=== PATIENT | male | born 1955 | race African-American/Black ===

== ENCOUNTER 2017-01-17 17:46 | Emergency (ER) | payer MEDICARE, OTHER ==
[~2017-01-17 17:46] MED LIST: Sodium Chloride 0.9% 1,000 ML BAG ONE
[2017-01-17 18:31] LABS: #Basophils 0.1 thou/uL (0.0-0.2); #Eosinphils 0.2 thou/uL (0.0-0.7); #Monocytes 0.9 thou/uL (0.11-0.59); #Neutrophils 5.9 thou/uL (1.40-6.50); %Basophils 1.2 % (0.0-1.0); %Eosinophils 1.5 % (0.0-10.0); %Lymphocytes 29.7 % (21.0-51.0); %Monocytes 8.5 % (0.0-10.0); %Neutrophils 59.1 % (42.0-75.0); Mean Corpuscular HGB CONC 34.1 g/dL (32.0-36.0); Mean Corpuscular Volume 87.9 fl (80.0-94.0); Platelet Count 349 thou/uL (130-400); RBC Distribution Width 12.3 % (11.5-14.5); Red Blood Cell (RBC) Count 5.33 mill/uL (4.70-6.10); White Blood Cell (WBC) Count 10.1 thou/uL (4.8-10.8)
[2017-01-17 18:34] LABS: Prothrombin Time 13.9 SEC (12.0-14.7)
[2017-01-17 18:35] LABS: PTT 27.2 SEC (22.9-36.1)
[2017-01-17 18:42] LABS: Acetaminophen Less than 3.0 mcg/mL (10.0-30.0); Alcohol Less than 10 mg/dL (Less than 10); Salicylate Less than 5.0 mg/dL (15.0-30.0)
[2017-01-17 18:45] LABS: CKMB 5.4 ng/mL (0-6.6); Troponin I 0.044 ng/mL (< 0.028)
[2017-01-17 19:02] LABS: Anion Gap 20 mmol/L (10-20); BUN (Urea Nitrogen) 77 mg/dL (8.4-25.7); Calc. Creatinine Clearance 0 mL/min (70-130); Calcium 9.5 mg/dL (7.8-10.44); Carbon Dioxide 21 mmol/L (23-31); Chloride 99 mmol/L (98-107); Estimated GFR-MDRD 25; Glucose 144 mg/dL (80-115); Potassium 3.6 mmol/L (3.5-5.1); Sodium 136 mmol/L (136-145)
[2017-01-17 19:22] LABS: Amphetamine Not Detected (NotDetected); Barbiturates Screen Not Detected (NotDetected); Benzodiazepine Screen Not Detected (NotDetected); Cocaine Metabolite Screen Not Detected (NotDetected); Medtox Control Line Valid? VALID (VALID); Methadone Not Detected (NotDetected); Methamphetamine Not Detected (NotDetected); Opiate Screen Not Detected (NotDetected); Oxycodone Screen Not Detected (NotDetected); Phencyclidine (PCP) Not Detected (NotDetected); THC/Cannabinoid Screen Not Detected (NotDetected); Tricyclic Screen Not Detected (NotDetected)
--- NOTE | 2017-01-17 21:05 | RAD ---
PORTABLE AP CHEST X-RAY 01/17/17 HISTORY: Dyspnea. COMPARISON: 08/17/16 FINDINGS: A single lead left subclavian AICD device remains in place. The cardiac silhouette remains markedly enlarged but stable in size. Pulmonary vasculature is within normal limits. The lungs are clear. The re has been no interval change when compared to the prior exam. IMPRESSION: 1. No acute cardiopulmonary process. 2. Stable cardiomegaly. POS: [facility]
== END 2017-01-17 20:07 | disposition home or self-care (01) ==
LOC: MADERS 17:46
DX: E86.0 Dehydration (principal); I48.91 Unspecified atrial fibrillation; I25.10 Atherosclerotic heart disease of native coronary artery without angina pectoris; I25.2 Old myocardial infarction; E78.5 Hyperlipidemia, unspecified; E78.00 Pure hypercholesterolemia, unspecified; I11.0 Hypertensive heart disease with heart failure; I50.9 Heart failure, unspecified; Z87.891 Personal history of nicotine dependence; Z79.84 Long term (current) use of oral hypoglycemic drugs; Z79.899 Other long term (current) drug therapy
CPT/HCPCS: 71010; 80048; 80306; 80307; 82553; 83880; 84484; 85025; 85610; 85730; 93005; 96360; 96361; J7050

== ENCOUNTER 2017-04-16 01:50 | Emergency (ER) | payer MEDICARE ==
[2017-04-16 02:24] LABS: #Basophils 0.1 thou/uL (0.0-0.2); #Eosinphils 0.2 thou/uL (0.0-0.7); #Lymphocytes 3.2 thou/uL (1.20-3.40); #Monocytes 0.9 thou/uL (0.11-0.59); #Neutrophils 5.3 thou/uL (1.40-6.50); %Basophils 1.3 % (0.0-1.0); %Eosinophils 1.8 % (0.0-10.0); %Lymphocytes 33.2 % (21.0-51.0); %Monocytes 9.2 % (0.0-10.0); %Neutrophils 54.5 % (42.0-75.0); Hemoglobin 12.5 g/dL (14.0-18.0); Mean Corpuscular HGB CONC 33.1 g/dL (32.0-36.0); Mean Corpuscular Hemoglobin 30.6 pg (27.0-31.0); Mean Corpuscular Volume 92.6 fl (80.0-94.0); Mean Platelet Volume 8.6 fL (7.4-10.4); Platelet Count 258 thou/uL (130-400); White Blood Cell (WBC) Count 9.7 thou/uL (4.8-10.8)
[2017-04-16] MEDS ORDERED: Furosemide 40 MG/4 ML VIAL ONE (02:24)
[2017-04-16] MEDS ORDERED: Furosemide 20 MG/2 ML VIAL ONE (02:24)
[2017-04-16 02:42] LABS: ALT (SGPT) 11 U/L (8-55); AST (SGOT) 18 U/L (5-34); Albumin 3.5 g/dL (3.4-4.8); Alkaline Phosphatase 91 U/L (40-150); Anion Gap 18 mmol/L (10-20); BUN (Urea Nitrogen) 22 mg/dL (8.4-25.7); Bilirubin, Total 0.5 mg/dL (0.2-1.2); Calc. Creatinine Clearance 0 mL/min (70-130); Calcium 8.6 mg/dL (7.8-10.44); Carbon Dioxide 18 mmol/L (23-31); Chloride 109 mmol/L (98-107); Estimated GFR-MDRD 65; Globulin 3.5 g/dL (2.4-3.5); Glucose 111 mg/dL (80-115); Magnesium 2.1 mg/dL (1.6-2.6); Potassium 3.6 mmol/L (3.5-5.1); Sodium 141 mmol/L (136-145)
[2017-04-16 02:45] LABS: CKMB 2.8 ng/mL (0-6.6); Troponin I 0.028 ng/mL (< 0.028)
--- NOTE | 2017-04-16 08:42 | RAD ---
RADIOGRAPH CHEST 1 VIEW: HISTORY: 61-year-old male with dyspnea. FINDINGS: There is cardiomegaly. There is no evidence of air space density, pulmonary edema, or pneumothorax. The lateral costophrenic angles are sharp. There is a single lead left subclavian AICD. IMPRESSION: 1) No acute pulmonary findings. 2) Cardiomegaly without congestive heart failure. 3) Automatic implantable cardioverter-defibrillator. ann POS: [facility]
== END 2017-04-16 03:14 | disposition short-term general hospital (02) ==
LOC: MADERS 01:50
DX: I11.0 Hypertensive heart disease with heart failure (principal); I50.9 Heart failure, unspecified; E87.70 Fluid overload, unspecified; I48.91 Unspecified atrial fibrillation; I25.10 Atherosclerotic heart disease of native coronary artery without angina pectoris; I25.2 Old myocardial infarction; E78.00 Pure hypercholesterolemia, unspecified; E78.5 Hyperlipidemia, unspecified; M06.9 Rheumatoid arthritis, unspecified; Z87.891 Personal history of nicotine dependence; Z79.899 Other long term (current) drug therapy; Z79.82 Long term (current) use of aspirin
CPT/HCPCS: 71010; 80053; 82553; 83735; 83880; 84443; 84484; 85025; 93005; 96374; J1940

== ENCOUNTER 2017-04-24 10:22 | Outpatient (CLI) | payer MEDICARE ==
[2017-04-24 11:06] LABS: Hemoglobin A1c 6.3 % (4.0-6.0)
[2017-04-24 11:39] LABS: ALT (SGPT) 11 U/L (8-55); AST (SGOT) 15 U/L (5-34); Albumin 3.4 g/dL (3.4-4.8); Alkaline Phosphatase 91 U/L (40-150); Anion Gap 17 mmol/L (10-20); BUN (Urea Nitrogen) 17 mg/dL (8.4-25.7); Bilirubin, Total 1.1 mg/dL (0.2-1.2); Calc. Creatinine Clearance 0 mL/min (70-130); Calcium 8.8 mg/dL (7.8-10.44); Carbon Dioxide 22 mmol/L (23-31); Chloride 102 mmol/L (98-107); Estimated GFR-MDRD 57; Globulin 3.7 g/dL (2.4-3.5); Glucose 111 mg/dL (80-115); Potassium 3.1 mmol/L (3.5-5.1); Protein, Total 7.1 g/dL (5.8-8.1); Sodium 138 mmol/L (136-145); Uric Acid 9.3 mg/dL (3.5-7.2)
[2017-04-24 17:42] LABS: Creatinine, Urine 184.7 mg/dL (63-166); Microalbumin Urine 14.3 mg/dL (0.5-50.0); Microalbumin/Creat Ratio 77.4 mg/g (Less than 30)
== END 2017-04-24 10:23 | disposition home or self-care (01) ==
LOC: MADLAB 10:22
PROVIDERS: ATTEND Family Medicine
DX: E11.65 Type 2 diabetes mellitus with hyperglycemia (principal); E11.22 Type 2 diabetes mellitus with diabetic chronic kidney disease; N18.9 Chronic kidney disease, unspecified; I50.9 Heart failure, unspecified; M10.9 Gout, unspecified
CPT/HCPCS: 36415; 80053; 82043; 83036; 83880; 84550

== ENCOUNTER 2017-05-17 20:35 | Emergency (ER) | payer MEDICARE ==
[~2017-05-17 20:35] MED LIST changes: -Sodium Chloride 0.9% 1,000 ML BAG ONE; +Sodium Chloride 0.9% 100 ML BAG ONE
--- NOTE | 2017-05-17 21:03 | RAD ---
AP VIEW CHEST 05/17/17 HISTORY: Shortness of breath. AP view chest obtained on 05/17/17. Comparison made to a previous exam from earlier in the day on 05/17/17. FINDINGS/IMPRESSION: AP view chest demonstrates cardiomegaly. An intracardiac defibrillator is seen. Mild pulmonary vascu lar congestion is seen. No evidence of acute intrathoracic abnormality seen. No significant interval changes seen since the previous comparison radiograph from earlier in the day. POS: [facility]
[2017-05-17] MEDS ORDERED: Furosemide 40 MG/4 ML VIAL ONE (21:12)
[2017-05-17] MEDS ORDERED: Enoxaparin Sodium 80 MG/0.8 ML SYRINGE ONE (21:12)
[2017-05-17] MEDS ORDERED: Morphine Sulfate 2 MG/ML SYRINGE ONE (21:12)
[2017-05-17 21:24] LABS: INR-International Normal Ratio 1.3; PTT 27.5 SEC (22.9-36.1); Prothrombin Time 16.2 SEC (12.0-14.7)
[2017-05-17 21:33] LABS: #Basophils 0.1 thou/uL (0.0-0.2); #Eosinphils 0.1 thou/uL (0.0-0.7); #Lymphocytes 3.1 thou/uL (1.20-3.40); #Monocytes 0.9 thou/uL (0.11-0.59); #Neutrophils 5.9 thou/uL (1.40-6.50); %Basophils 1.3 % (0.0-1.0); %Lymphocytes 30.4 % (21.0-51.0); %Monocytes 9.2 % (0.0-10.0); Hemoglobin 12.7 g/dL (14.0-18.0); Mean Corpuscular HGB CONC 31.8 g/dL (32.0-36.0); Mean Corpuscular Hemoglobin 30.1 pg (27.0-31.0); Mean Corpuscular Volume 94.6 fl (80.0-94.0); Mean Platelet Volume 7.5 fL (7.4-10.4); Platelet Count 281 thou/uL (130-400); RBC Distribution Width 15.4 % (11.5-14.5); Red Blood Cell (RBC) Count 4.23 mill/uL (4.70-6.10); White Blood Cell (WBC) Count 10.1 thou/uL (4.8-10.8)
[2017-05-17 21:34] LABS: ALT (SGPT) 88 U/L (8-55); AST (SGOT) 162 U/L (5-34); Albumin 3.6 g/dL (3.4-4.8); Alkaline Phosphatase 102 U/L (40-150); Anion Gap 18 mmol/L (10-20); BUN (Urea Nitrogen) 25 mg/dL (8.4-25.7); Calc. Creatinine Clearance 0 mL/min (70-130); Calcium 8.9 mg/dL (7.8-10.44); Carbon Dioxide 17 mmol/L (23-31); Chloride 107 mmol/L (98-107); Estimated GFR-MDRD 56; Globulin 3.7 g/dL (2.4-3.5); Glucose 120 mg/dL (80-115); Potassium 3.7 mmol/L (3.5-5.1); Protein, Total 7.3 g/dL (5.8-8.1); Sodium 138 mmol/L (136-145)
[2017-05-17 21:42] LABS: CKMB 2.9 ng/mL (0-6.6); Troponin I 0.073 ng/mL (< 0.028)
== END 2017-05-17 21:51 | disposition short-term general hospital (02) ==
LOC: MADERS 20:35
DX: I11.0 Hypertensive heart disease with heart failure (principal); I50.9 Heart failure, unspecified; I48.91 Unspecified atrial fibrillation; I87.8 Other specified disorders of veins; I25.10 Atherosclerotic heart disease of native coronary artery without angina pectoris; I25.2 Old myocardial infarction; E78.5 Hyperlipidemia, unspecified; E11.9 Type 2 diabetes mellitus without complications; F17.220 Nicotine dependence, chewing tobacco, uncomplicated; Z95.0 Presence of cardiac pacemaker; Z79.82 Long term (current) use of aspirin; Z79.899 Other long term (current) drug therapy
CPT/HCPCS: 36415; 71010; 80053; 82553; 83880; 84484; 84550; 85025; 85610; 85730; 93005; 96365; 96372; 96374; 96375; 96376; J1650; J1940; J2270; J7050

== ENCOUNTER 2017-08-03 23:16 | Emergency (ER) | payer MEDICARE ==
[2017-08-04] MEDS ORDERED: Triamcinolone 40 MG/ML VIAL ONE (00:30)
[2017-08-04] MEDS ORDERED: Ketorolac Tromethamine 60 MG/2 ML VIAL ONE (00:31)
== END 2017-08-04 00:50 | disposition home or self-care (01) ==
LOC: MADERS 23:16
DX: M10.9 Gout, unspecified (principal); I48.91 Unspecified atrial fibrillation; I11.0 Hypertensive heart disease with heart failure; I50.9 Heart failure, unspecified; I25.10 Atherosclerotic heart disease of native coronary artery without angina pectoris; I25.2 Old myocardial infarction; E78.5 Hyperlipidemia, unspecified; E11.9 Type 2 diabetes mellitus without complications; F17.220 Nicotine dependence, chewing tobacco, uncomplicated; Z79.82 Long term (current) use of aspirin; Z79.899 Other long term (current) drug therapy
CPT/HCPCS: 96372; J1885; J3301

== ENCOUNTER 2017-11-24 10:50 | Emergency (ER) | payer MEDICARE ==
[2017-11-24] MEDS ORDERED: Oseltamivir 75 MG CAP ONE (11:32)
[2017-11-24] MEDS ORDERED: Benzonatate 100 MG CAP ONE (11:32)
--- NOTE | 2017-11-24 12:24 | RAD ---
CHEST 2 VIEWS: History Cough. COMPARISON: 09/21/13. FINDINGS: Cardiac silhouette is enlarged. Pulmonary vasculature is slightly engorged. Mediastinum is midline with a single-lead left subclavian cardiac defibrillator. There is no lobar consolidation, pneumotho rax, or pleural fluid evident. IMPRESSION: Cardiomegaly with pulmonary vascular congestion. POS: [facility]
== END 2017-11-24 11:40 | disposition home or self-care (01) ==
LOC: MADERS 10:50
DX: J11.1 Influenza due to unidentified influenza virus with other respiratory manifestations (principal); I48.91 Unspecified atrial fibrillation; E11.9 Type 2 diabetes mellitus without complications; I11.0 Hypertensive heart disease with heart failure; I50.9 Heart failure, unspecified; I25.2 Old myocardial infarction; M10.9 Gout, unspecified; M06.9 Rheumatoid arthritis, unspecified; I25.10 Atherosclerotic heart disease of native coronary artery without angina pectoris; E78.5 Hyperlipidemia, unspecified; F17.220 Nicotine dependence, chewing tobacco, uncomplicated; Z79.84 Long term (current) use of oral hypoglycemic drugs; Z79.899 Other long term (current) drug therapy; Z79.82 Long term (current) use of aspirin
CPT/HCPCS: 71046; 93005

== ENCOUNTER 2017-11-28 18:16 | Emergency (ER) | payer MEDICARE ==
[2017-11-28] MEDS ORDERED: Furosemide 40 MG/4 ML VIAL ONE (18:47)
--- NOTE | 2017-11-28 19:52 | RAD ---
PORTABLE CHEST: 11/28/17 HISTORY: Dyspnea. Chest pain. COMPARISON: 05/17/17. Cardiomegaly. Single AICD lead again noted and is unchanged. Mild vascular engorgement. No focal infi ltrate or significant effusion. No significant interval change. IMPRESSION: No cardiomegaly with mild vascular engorgement. POS: [facility]
[2017-11-28 20:04] LABS: PTT 27.7 SEC (22.9-36.1); Prothrombin Time 13.2 SEC (12.0-14.7)
[2017-11-28 20:06] LABS: D-Dimer Test 0.71 *mcg/mL (0.27-0.43)
[2017-11-28 20:12] LABS: Anion Gap 16 mmol/L (10-20); BUN (Urea Nitrogen) 21 mg/dL (8.4-25.7); Calc. Creatinine Clearance 0 mL/min (70-130); Carbon Dioxide 27 mmol/L (23-31); Chloride 101 mmol/L (98-107); Estimated GFR-MDRD 80; Sodium 141 mmol/L (136-145)
[2017-11-28 20:13] LABS: ALT (SGPT) 30 U/L (8-55); AST (SGOT) 60 U/L (5-34); Albumin 3.6 g/dL (3.4-4.8); Alkaline Phosphatase 67 U/L (40-150); Bilirubin, Total 0.5 mg/dL (0.2-1.2); CK (CPK) 2366 U/L (30-200); Calcium 8.4 mg/dL (7.8-10.44); Globulin 3.7 g/dL (2.4-3.5); Glucose 110 mg/dL (80-115); Hemoglobin 12.8 g/dL (14.0-18.0); Lymphocytes 37 % (21-51); MDiff Complete? YES; Mean Corpuscular HGB CONC 32.2 g/dL (32.0-36.0); Mean Corpuscular Hemoglobin 30.6 pg (27.0-31.0); Mean Platelet Volume 7.7 fL (7.4-10.4); Monocytes 4 % (0-10); Neutrophil 59 % (42-75); PLT Morphology Comment Appears Adequate; Platelet Count 245 thou/uL (130-400); Protein, Total 7.3 g/dL (5.8-8.1); Red Blood Cell (RBC) Count 4.18 mill/uL (4.70-6.10); White Blood Cell (WBC) Count 5.8 thou/uL (4.8-10.8)
[2017-11-28 20:16] LABS: Troponin I 0.104 ng/mL (< 0.028)
[2017-11-28 20:17] LABS: Potassium 2.9 mmol/L (3.5-5.1)
[2017-11-28] MEDS ORDERED: Potassium Chloride 20 MEQ/100 ML PREMIX BAG ONE (20:50)
[2017-11-28] MEDS ORDERED: Metoprolol Tartrate 5 MG/5 ML VIAL ONE (20:57)
== END 2017-11-28 22:08 | disposition short-term general hospital (02) ==
LOC: MADERS 18:16
DX: I48.91 Unspecified atrial fibrillation (principal); R79.89 Other specified abnormal findings of blood chemistry; E87.6 Hypokalemia; E78.5 Hyperlipidemia, unspecified; E11.9 Type 2 diabetes mellitus without complications; I10 Essential (primary) hypertension; Z87.891 Personal history of nicotine dependence; Z79.899 Other long term (current) drug therapy; Z79.82 Long term (current) use of aspirin
CPT/HCPCS: 36415; 71045; 80053; 82553; 83880; 84484; 85025; 85379; 85610; 85730; 93005; 94640; 94760; 96365; 96375; J1940; J3480; J7050; J7620

== ENCOUNTER 2017-12-09 05:34 | Emergency (ER) | payer MEDICARE ==
[2017-12-09] MEDS ORDERED: Furosemide 20 MG/2 ML VIAL ONE (06:28)
[2017-12-09] MEDS ORDERED: Furosemide 40 MG/4 ML VIAL ONE (06:28)
[2017-12-09 06:52] LABS: ALT (SGPT) 19 U/L (8-55); AST (SGOT) 21 U/L (5-34); Albumin 3.5 g/dL (3.4-4.8); Alkaline Phosphatase 93 U/L (40-150); Anion Gap 15 mmol/L (10-20); BUN (Urea Nitrogen) 19 mg/dL (8.4-25.7); Bilirubin, Total 0.3 mg/dL (0.2-1.2); Calc. Creatinine Clearance 0 mL/min (70-130); Calcium 8.5 mg/dL (7.8-10.44); Carbon Dioxide 22 mmol/L (23-31); Chloride 108 mmol/L (98-107); Estimated GFR-MDRD 76; Glucose 105 mg/dL (80-115); Sodium 141 mmol/L (136-145)
[2017-12-09 06:54] LABS: CKMB 3.3 ng/mL (0-6.6); Troponin I 0.027 ng/mL (< 0.028)
[2017-12-09 07:01] LABS: INR-International Normal Ratio 1.1; PTT 28.4 SEC (22.9-36.1); Prothrombin Time 13.8 SEC (12.0-14.7)
[2017-12-09 07:02] LABS: Protein, Total 6.5 g/dL (5.8-8.1)
[2017-12-09 07:11] LABS: Eosinophils 3 % (0-10); Hemoglobin 12.4 g/dL (14.0-18.0); Lymphocytes 19 % (21-51); MDiff Complete? YES; Mean Corpuscular Hemoglobin 30.6 pg (27.0-31.0); Mean Corpuscular Volume 95.7 fl (80.0-94.0); Monocytes 13 % (0-10); Neutrophil 57 % (42-75); PLT Morphology Comment Appears Adequate; Platelet Count 375 thou/uL (130-400); RBC Distribution Width 12.4 % (11.5-14.5); Reactive Lymphocytes 8 % (0-10); Red Blood Cell (RBC) Count 4.05 mill/uL (4.70-6.10); White Blood Cell (WBC) Count 6.9 thou/uL (4.8-10.8)
[2017-12-09 07:35] LABS: pH (venous) 7.44 (7.35-7.45)
[2017-12-09 07:38] LABS: Hemoglobin (Hb) 12.6 g/dL (13.1-17.2)
--- NOTE | 2017-12-09 08:24 | RAD ---
PA AND LATERAL VIEWS CHEST: HISTORY: Dyspnea. FINDINGS: Comparison is made with the exam of 11/29/17. The heart is enlarged. Left-sided AICD remains in place. The lungs are well expanded without conflu ent areas of consolidation, pneumothoraces, ama pulmonary edema, or pleural effusions. There are d egenerative changes in the spine. IMPRESSION: Cardiomegaly. POS: [facility]
== END 2017-12-09 07:30 | disposition home or self-care (01) ==
LOC: MADERS 05:34
DX: I11.0 Hypertensive heart disease with heart failure (principal); I50.9 Heart failure, unspecified; G47.30 Sleep apnea, unspecified; I48.91 Unspecified atrial fibrillation; I25.2 Old myocardial infarction; E78.5 Hyperlipidemia, unspecified; E11.9 Type 2 diabetes mellitus without complications; Z87.891 Personal history of nicotine dependence
CPT/HCPCS: 71046; 80053; 82553; 82805; 83880; 84484; 85025; 85610; 85730; 93005; 94760; 96374; J1940

== ENCOUNTER 2018-01-18 15:08 | Emergency (ER) | payer MEDICARE ==
[2018-01-18 16:46] LABS: Hemoglobin 12.7 g/dL (14.0-18.0); Manual Diff?? NO; Mean Corpuscular HGB CONC 32.5 g/dL (32.0-36.0); Mean Corpuscular Hemoglobin 31.3 pg (27.0-31.0); Mean Corpuscular Volume 96.1 fL (80.0-94.0); Mean Platelet Volume 8.1 fL (7.4-10.4); Platelet Count 248 thou/uL (130-400); RBC Distribution Width 13.5 % (11.5-14.5); Red Blood Cell (RBC) Count 4.06 mill/uL (4.70-6.10); White Blood Cell (WBC) Count 7.6 thou/uL (4.8-10.8)
[2018-01-18 16:47] LABS: #Basophils 0.1 thou/uL (0.0-0.2); #Eosinphils 0.1 thou/uL (0.0-0.7); #Monocytes 0.7 thou/uL (0.11-0.59); #Neutrophils 4.1 thou/uL (1.40-6.50); %Basophils 1.1 % (0.0-1.0); %Lymphocytes 35.3 % (21.0-51.0); %Neutrophils 53.5 % (42.0-75.0); MDiff Complete? YES
[2018-01-18 16:49] LABS: INR-International Normal Ratio 1.2; PTT 26.7 SEC (22.9-36.1); Prothrombin Time 14.7 SEC (12.0-14.7)
[2018-01-18 16:55] LABS: ALT (SGPT) 16 U/L (8-55); AST (SGOT) 19 U/L (5-34); Albumin 3.6 g/dL (3.4-4.8); Alkaline Phosphatase 79 U/L (40-150); Anion Gap 19 mmol/L (10-20); BUN (Urea Nitrogen) 29 mg/dL (8.4-25.7); Bilirubin, Total 0.7 mg/dL (0.2-1.2); CK (CPK) 139 U/L (30-200); Calc. Creatinine Clearance 0 mL/min (70-130); Calcium 8.9 mg/dL (7.8-10.44); Carbon Dioxide 23 mmol/L (23-31); Chloride 102 mmol/L (98-107); Estimated GFR-MDRD 59; Glucose 111 mg/dL (80-115); Potassium 3.5 mmol/L (3.5-5.1); Protein, Total 6.6 g/dL (5.8-8.1); Sodium 140 mmol/L (136-145)
[2018-01-18 16:59] LABS: CKMB 2.3 ng/mL (0-6.6); Troponin I 0.025 ng/mL (< 0.028)
[2018-01-18] MEDS ORDERED: Furosemide 40 MG/4 ML VIAL ONE ×2 (17:34→19:40)
[2018-01-18] MEDS ORDERED: Aspirin 325 MG TAB ONE (17:34)
[2018-01-18 17:40] LABS: Bacteria/HPF None Seen HPF (None Seen); Bilirubin Negative (Negative); Blood, Urine Small (Negative); Clarity Clear (Clear); Glucose, Urine (Dipstick) Negative (Negative); Leukocyte Negative (Negative); Nitrite Negative (Negative); Other Microscopic Description C&S SET UP; Protein, Urine (Dipstick) Negative (Neg-Trace); RBC/HPF 0-3 HPF (0-3); Squamous Epithelial 0-3 HPF (0-3); Urobilinogen 0.2 mg/dL (0.2-1.0); WBC/HPF None Seen HPF (0-3); pH, Urine 5.5 (5.0-9.0)
--- NOTE | 2018-01-18 19:02 | RAD ---
PA AND LATERAL OF THE CHEST: 01/18/18 INDICATION: Dyspnea. IMPRESSION: There is stable cardiomegaly. AICD is unchanged. No focal consolidation, pleural effusion or pneumoth orax is evident. Osseous structures are unchanged from the comparison dated 12/09/17. POS: [facility]
== END 2018-01-18 20:53 | disposition home or self-care (01) ==
LOC: MADERS 15:08
DX: I11.0 Hypertensive heart disease with heart failure (principal); I50.9 Heart failure, unspecified; I48.91 Unspecified atrial fibrillation; I25.10 Atherosclerotic heart disease of native coronary artery without angina pectoris; I25.2 Old myocardial infarction; E11.9 Type 2 diabetes mellitus without complications; M10.9 Gout, unspecified; Z87.891 Personal history of nicotine dependence; Z79.899 Other long term (current) drug therapy; Z79.82 Long term (current) use of aspirin; Z79.84 Long term (current) use of oral hypoglycemic drugs
CPT/HCPCS: 36415; 71046; 80053; 81001; 82550; 82553; 83880; 84484; 85025; 85610; 85730; 87086; 93005; 94760; 96374; 96376; J1940

== ENCOUNTER 2018-01-23 21:58 | Emergency (ER) | payer MEDICARE ==
[2018-01-23] MEDS ORDERED: Furosemide 40 MG/4 ML VIAL ONE (22:23)
[2018-01-23] MEDS ORDERED: Nitroglycerin 2% Ointment 1 INCH/1 GM Packet ONE (22:34)
[2018-01-23 22:38] LABS: #Basophils 0.1 thou/uL (0.0-0.2); #Eosinphils 0.1 thou/uL (0.0-0.7); #Lymphocytes 2.8 thou/uL (1.20-3.40); #Monocytes 0.8 thou/uL (0.11-0.59); #Neutrophils 4.8 thou/uL (1.40-6.50); %Basophils 1.6 % (0.0-1.0); %Eosinophils 0.9 % (0.0-10.0); %Lymphocytes 32.5 % (21.0-51.0); %Monocytes 9.7 % (0.0-10.0); %Neutrophils 55.3 % (42.0-75.0); Hemoglobin 12.6 g/dL (14.0-18.0); Mean Corpuscular HGB CONC 33.5 g/dL (32.0-36.0); Mean Corpuscular Hemoglobin 31.2 pg (27.0-31.0); Mean Corpuscular Volume 92.9 fl (80.0-94.0); Mean Platelet Volume 7.4 fL (7.4-10.4); Platelet Count 246 thou/uL (130-400); RBC Distribution Width 14.3 % (11.5-14.5); Red Blood Cell (RBC) Count 4.04 mill/uL (4.70-6.10); White Blood Cell (WBC) Count 8.7 thou/uL (4.8-10.8)
[2018-01-23 22:46] LABS: INR-International Normal Ratio 1.3; Prothrombin Time 15.9 SEC (12.0-14.7)
[2018-01-23 22:47] LABS: PTT 29.3 SEC (22.9-36.1)
[2018-01-23 22:48] LABS: D-Dimer Test 0.47 *mcg/mL (0.27-0.43)
[2018-01-23 23:03] LABS: Digoxin Less than 0.15 ng/mL (0.8-2.0)
[2018-01-23 23:05] LABS: ALT (SGPT) 45 U/L (8-55); AST (SGOT) 45 U/L (5-34); Albumin 3.7 g/dL (3.4-4.8); Alkaline Phosphatase 76 U/L (40-150); Anion Gap 18 mmol/L (10-20); BUN (Urea Nitrogen) 28 mg/dL (8.4-25.7); Bilirubin, Total 1.2 mg/dL (0.2-1.2); Calc. Creatinine Clearance 0 mL/min (70-130); Calcium 8.5 mg/dL (7.8-10.44); Carbon Dioxide 29 mmol/L (23-31); Chloride 98 mmol/L (98-107); Estimated GFR-MDRD 50; Globulin 2.7 g/dL (2.4-3.5); Glucose 156 mg/dL (80-115); Potassium 3.3 mmol/L (3.5-5.1); Protein, Total 6.4 g/dL (5.8-8.1); Sodium 142 mmol/L (136-145)
--- NOTE | 2018-01-23 23:05 | RAD ---
PORTABLE CHEST: 01/23/18 HISTORY: Dyspnea. COMPARISON: 11/29/17. Cardiomegaly with single AICD lead again noted. No evidence of vascular congestion. No definite infil trate identified. IMPRESSION: Cardiomegaly without evidence of focal infiltrate seen on portable exam. POS: [facility]
[2018-01-23 23:07] LABS: CKMB 2.5 ng/mL (0-6.6); Troponin I 0.025 ng/mL (< 0.028)
[2018-01-23] MEDS ORDERED: Digoxin 0.5 MG/2 ML AMP ONE (23:22)
[2018-01-23] MEDS ORDERED: Enoxaparin Sodium 40 MG/0.4 ML SYRINGE ONE (23:29)
[2018-01-23] MEDS ORDERED: Enoxaparin Sodium 60 MG/0.6 ML SYRINGE ONE (23:29)
== END 2018-01-23 23:45 | disposition short-term general hospital (02) ==
LOC: MADERS 21:58
DX: I11.0 Hypertensive heart disease with heart failure (principal); I50.41 Acute combined systolic (congestive) and diastolic (congestive) heart failure; I48.91 Unspecified atrial fibrillation; E66.9 Obesity, unspecified; I25.10 Atherosclerotic heart disease of native coronary artery without angina pectoris; I25.2 Old myocardial infarction; E78.5 Hyperlipidemia, unspecified; E11.9 Type 2 diabetes mellitus without complications; M10.9 Gout, unspecified; Z87.891 Personal history of nicotine dependence; Z79.82 Long term (current) use of aspirin; Z79.899 Other long term (current) drug therapy
CPT/HCPCS: 36416; 71045; 80162; 82553; 83880; 84443; 84484; 85025; 85379; 85610; 85730; 93005; 94760; 96372; 96374; 96375; J1160; J1650; J1940

== ENCOUNTER 2018-03-07 15:24 | Emergency (ER) | payer MEDICARE | END 2018-03-07 17:20 | disposition left against medical advice (07) | LOC: MADERS 15:24 | DX: Z53.21 Procedure and treatment not carried out due to patient leaving prior to being seen by health care provider (principal) ==

== ENCOUNTER 2018-04-09 22:04 | Emergency (ER) | payer MEDICARE ==
[2018-04-09] MEDS ORDERED: Furosemide 40 MG/4 ML VIAL ONE (22:28)
[2018-04-09 22:36] LABS: #Basophils 0.1 thou/uL (0.0-0.2); #Eosinphils 0.1 thou/uL (0.0-0.7); #Lymphocytes 3.2 thou/uL (1.20-3.40); #Monocytes 0.8 thou/uL (0.11-0.59); #Neutrophils 5.6 thou/uL (1.40-6.50); %Basophils 1.3 % (0.0-1.0); %Eosinophils 1.3 % (0.0-10.0); %Lymphocytes 32.3 % (21.0-51.0); %Monocytes 7.9 % (0.0-10.0); %Neutrophils 57.2 % (42.0-75.0); Hemoglobin 12.3 g/dL (14.0-18.0); Mean Corpuscular HGB CONC 31.9 g/dL (32.0-36.0); Mean Corpuscular Hemoglobin 28.9 pg (27.0-31.0); Mean Corpuscular Volume 90.8 fL (78.0-98.0); Mean Platelet Volume 7.2 fL (7.4-10.4); Platelet Count 256 thou/uL (130-400); RBC Distribution Width 14.7 % (11.5-14.5); Red Blood Cell (RBC) Count 4.26 mill/uL (4.70-6.10); White Blood Cell (WBC) Count 9.8 thou/uL (4.8-10.8)
[2018-04-09 22:44] LABS: INR-International Normal Ratio 1.2; PTT 29.5 SEC (22.9-36.1); Prothrombin Time 15.2 SEC (12.0-14.7)
--- NOTE | 2018-04-09 22:48 | RAD ---
RADIOGRAPH CHEST 2 VIEWS: 04/09/18 HISTORY: 62-year-old male with dyspnea. FINDINGS: There is cardiomegaly. There is no evidence of air space density, pulmonary edema, or pneumothorax. T here is no pleural effusion. There is a single lead left subclavian AICD. The thoracic aorta is ectat ic and tortuous. IMPRESSION: 1) No acute pulmonary findings. 2) Cardiomegaly without congestive heart failure. 3) Automatic implantable cardioverter/defibrillator. 4) Ectasia and tortuosity of thoracic aorta. ann [] POS: [facility]
[2018-04-09 22:52] LABS: ALT (SGPT) 12 U/L (8-55); AST (SGOT) 18 U/L (5-34); Albumin 3.8 g/dL (3.4-4.8); Alkaline Phosphatase 100 U/L (40-150); Anion Gap 20 mmol/L (10-20); BUN (Urea Nitrogen) 21 mg/dL (8.4-25.7); Bilirubin, Total 0.8 mg/dL (0.2-1.2); Calc. Creatinine Clearance 0 mL/min (70-130); Calcium 8.8 mg/dL (7.8-10.44); Carbon Dioxide 22 mmol/L (23-31); Chloride 103 mmol/L (98-107); Estimated GFR-MDRD 54; Globulin 3.1 g/dL (2.4-3.5); Glucose 118 mg/dL (80-115); Magnesium 2.3 mg/dL (1.6-2.6); Potassium 3.5 mmol/L (3.5-5.1); Protein, Total 6.9 g/dL (5.8-8.1); Sodium 141 mmol/L (136-145)
[2018-04-09 22:55] LABS: Troponin I 0.022 ng/mL (< 0.028)
== END 2018-04-09 23:25 | disposition left against medical advice (07) ==
LOC: MADERS 22:04
DX: E87.70 Fluid overload, unspecified (principal); I48.91 Unspecified atrial fibrillation; I25.2 Old myocardial infarction; E78.5 Hyperlipidemia, unspecified; E11.9 Type 2 diabetes mellitus without complications; I11.0 Hypertensive heart disease with heart failure; I50.9 Heart failure, unspecified; M10.9 Gout, unspecified; M06.9 Rheumatoid arthritis, unspecified; Z87.891 Personal history of nicotine dependence; Z79.82 Long term (current) use of aspirin; Z79.899 Other long term (current) drug therapy
CPT/HCPCS: 71046; 80053; 82553; 83735; 83880; 84484; 85025; 85610; 85730; 93005; 96374; J1940

== ENCOUNTER 2018-04-19 23:03 | Emergency (ER) | payer MEDICARE ==
--- NOTE | 2018-04-19 23:41 | RAD ---
CHEST ONE VIEW: 04/19/18 COMPARISON: 01/23/18. HISTORY: Dyspnea. FINDINGS: Limited evaluation due to body habitus and portable technique. Decreased penetration. Limited evaluat ion of the single lead left sided defibrillator. Heart is enlarged. Pulmonary vessels are normal. No obvious masses or consolidation. Limited evaluation of the retrocardiac region. No pneumothorax or os seous abnormalities. IMPRESSION: Limited evaluation due to portable technique. Better interrogation to left lower lobe/retrocardiac re gion with a two view chest radiograph is recommended. POS: [facility]
[2018-04-19] MEDS ORDERED: Fentanyl 100 MCG/2 ML VIAL ONE (23:47)
[2018-04-19] MEDS ORDERED: Furosemide 40 MG/4 ML VIAL ONE (23:47)
[2018-04-19] MEDS ORDERED: Ondansetron HCl/PF 4 MG/2 ML Vial ONE (23:47)
[2018-04-19] MEDS ORDERED: Sodium Chloride 0.9% 500 ML BAG ONE (23:59)
[2018-04-20 00:04] LABS: Hemoglobin 11.8 g/dL (14.0-18.0); Mean Corpuscular HGB CONC 32.9 g/dL (32.0-36.0); Mean Corpuscular Hemoglobin 30.1 pg (27.0-31.0); Mean Corpuscular Volume 91.6 fL (78.0-98.0); Mean Platelet Volume 6.2 fL (7.4-10.4); Platelet Count 298 thou/uL (130-400); RBC Distribution Width 14.8 % (11.5-14.5); Red Blood Cell (RBC) Count 3.91 mill/uL (4.70-6.10); White Blood Cell (WBC) Count 8.8 thou/uL (4.8-10.8)
[2018-04-20 00:08] LABS: Anion Gap 17 mmol/L (10-20); BUN (Urea Nitrogen) 13 mg/dL (8.4-25.7); Calc. Creatinine Clearance 0 mL/min (70-130); Calcium 8.4 mg/dL (7.8-10.44); Carbon Dioxide 22 mmol/L (23-31); Chloride 106 mmol/L (98-107); Estimated GFR-MDRD 69; Glucose 106 mg/dL (80-115); Sodium 142 mmol/L (136-145)
[2018-04-20 00:16] LABS: Troponin I 0.011 ng/mL (< 0.028)
[2018-04-20 00:26] LABS: Potassium 2.9 mmol/L (3.5-5.1)
[2018-04-20 00:27] LABS: Band 10 % (5-11); Lymphocytes 20 % (21-51); MDiff Complete? YES; Metamyelocyte 3 % (0-0); Monocytes 6 % (0-10); Neutrophil 61 % (42-75)
[2018-04-20 00:33] LABS: CKMB 1.4 ng/mL (0-6.6)
[2018-04-20] MEDS ORDERED: Potassium Chloride 20 MEQ/100 ML PREMIX BAG ONE (00:34)
[2018-04-20] MEDS ORDERED: Potassium Chloride 20 MEQ TAB ONE (00:34)
== END 2018-04-20 04:52 | disposition home or self-care (01) ==
LOC: MADERS 23:03
DX: I11.0 Hypertensive heart disease with heart failure (principal); I50.9 Heart failure, unspecified; E87.6 Hypokalemia; I48.91 Unspecified atrial fibrillation; I25.10 Atherosclerotic heart disease of native coronary artery without angina pectoris; I25.2 Old myocardial infarction; E78.5 Hyperlipidemia, unspecified; E11.9 Type 2 diabetes mellitus without complications; M10.9 Gout, unspecified; Z87.891 Personal history of nicotine dependence; Z79.899 Other long term (current) drug therapy; Z79.82 Long term (current) use of aspirin
CPT/HCPCS: 36415; 71045; 80048; 82553; 83880; 84484; 85025; 93005; 96365; 96366; 96375; J1940; J2405; J3010; J3480; J7050

== ENCOUNTER 2018-04-25 20:28 | Emergency (ER) | payer MEDICARE ==
[2018-04-25] MEDS ORDERED: Nitroglycerin 0.4 MG TAB (25 Tab Bottle) ONE (20:51)
[2018-04-25] MEDS ORDERED: Furosemide 40 MG/4 ML VIAL ONE (20:51)
--- NOTE | 2018-04-25 20:59 | RAD ---
SINGLE VIEW OF THE CHEST: 04/25/18 COMPARISON: 04/19/18. HISTORY: Dyspnea. FINDINGS: Single view of the chest shows an enlarged but stable cardiomediastinal silhouette. The pacemaker is unchanged in position. There is no evidence of consolidation, mass or pleural effusion. IMPRESSION: Stable cardiomegaly. POS: [facility]
[2018-04-25 21:00] LABS: #Basophils 0.1 thou/uL (0.0-0.2); #Eosinphils 0.2 thou/uL (0.0-0.7); #Lymphocytes 2.2 thou/uL (1.20-3.40); #Monocytes 0.8 thou/uL (0.11-0.59); #Neutrophils 4.7 thou/uL (1.40-6.50); %Basophils 1.3 % (0.0-1.0); %Eosinophils 1.9 % (0.0-10.0); %Lymphocytes 27.6 % (21.0-51.0); %Monocytes 9.6 % (0.0-10.0); %Neutrophils 59.5 % (42.0-75.0); Hemoglobin 11.9 g/dL (14.0-18.0); Mean Corpuscular HGB CONC 32.4 g/dL (32.0-36.0); Mean Corpuscular Hemoglobin 29.8 pg (27.0-31.0); Mean Platelet Volume 6.7 fL (7.4-10.4); Platelet Count 322 thou/uL (130-400); RBC Distribution Width 14.3 % (11.5-14.5); Red Blood Cell (RBC) Count 3.99 mill/uL (4.70-6.10); White Blood Cell (WBC) Count 7.8 thou/uL (4.8-10.8)
[2018-04-25 21:11] LABS: INR-International Normal Ratio 1.3; PTT 31.4 SEC (22.9-36.1); Prothrombin Time 15.9 SEC (12.0-14.7)
[2018-04-25 21:21] LABS: ALT (SGPT) 17 U/L (8-55); AST (SGOT) 22 U/L (5-34); Albumin 3.5 g/dL (3.4-4.8); Alkaline Phosphatase 101 U/L (40-150); Anion Gap 20 mmol/L (10-20); BUN (Urea Nitrogen) 19 mg/dL (8.4-25.7); Calc. Creatinine Clearance 0 mL/min (70-130); Calcium 8.8 mg/dL (7.8-10.44); Carbon Dioxide 21 mmol/L (23-31); Chloride 105 mmol/L (98-107); Estimated GFR-MDRD 73; Globulin 3.7 g/dL (2.4-3.5); Glucose 110 mg/dL (80-115); Magnesium 2.2 mg/dL (1.6-2.6); Potassium 3.6 mmol/L (3.5-5.1); Protein, Total 7.2 g/dL (5.8-8.1); Sodium 142 mmol/L (136-145)
[2018-04-25 21:24] LABS: CKMB 2.1 ng/mL (0-6.6); Troponin I 0.032 ng/mL (< 0.028)
== END 2018-04-25 22:36 | disposition short-term general hospital (02) ==
LOC: MADERS 20:28
DX: I11.0 Hypertensive heart disease with heart failure (principal); I50.9 Heart failure, unspecified; I48.91 Unspecified atrial fibrillation; I25.2 Old myocardial infarction; E78.5 Hyperlipidemia, unspecified; E11.9 Type 2 diabetes mellitus without complications; M06.9 Rheumatoid arthritis, unspecified; M10.9 Gout, unspecified; Z79.82 Long term (current) use of aspirin; Z79.899 Other long term (current) drug therapy; Z87.891 Personal history of nicotine dependence
CPT/HCPCS: 71045; 80053; 82553; 83735; 83880; 84484; 85025; 85610; 85730; 93005; 94760; 96374; J1940

== ENCOUNTER 2018-05-04 21:47 | Emergency (ER) | payer MEDICARE ==
[2018-05-04] MEDS ORDERED: Albuterol Sulfate 2.5 mg/0.5 ml Neb ONE (22:31)
[2018-05-04] MEDS ORDERED: Furosemide 40 MG/4 ML VIAL ONE (22:31)
[2018-05-04] MEDS ORDERED: methylPREDNISolone Sod Succ/PF 125 MG/2 ML VIAL ONE (22:31)
--- NOTE | 2018-05-04 23:02 | RAD ---
CHEST ONE VIEW PORTABLE: HISTORY: A 62-year-old male with a history of dyspnea. FINDINGS: Cardiomegaly. Left ICD. Mild vascular congestion. Stable appearance from 04/25/2018. IMPRESSION: 1. Persistent stable cardiomegaly. 2. Mild stable vascular congestion. 3. No confluent pneumonia, overt edema, pleural effusion, or other significant new process. POS: [facility]
[2018-05-04 23:22] LABS: #Basophils 0.1 thou/uL (0.0-0.2); #Eosinphils 0.1 thou/uL (0.0-0.7); #Lymphocytes 2.3 thou/uL (1.20-3.40); #Monocytes 0.8 thou/uL (0.11-0.59); #Neutrophils 4.2 thou/uL (1.40-6.50); %Basophils 1.6 % (0.0-1.0); %Eosinophils 1.8 % (0.0-10.0); %Lymphocytes 30.1 % (21.0-51.0); %Neutrophils 55.5 % (42.0-75.0); Mean Corpuscular HGB CONC 31.4 g/dL (32.0-36.0); Mean Corpuscular Hemoglobin 29.1 pg (27.0-31.0); Mean Corpuscular Volume 92.6 fL (78.0-98.0); Mean Platelet Volume 6.9 fL (7.4-10.4); Platelet Count 306 thou/uL (130-400); RBC Distribution Width 14.4 % (11.5-14.5); Red Blood Cell (RBC) Count 4.14 mill/uL (4.70-6.10); White Blood Cell (WBC) Count 7.6 thou/uL (4.8-10.8)
[2018-05-04 23:32] LABS: Anion Gap 17 mmol/L (10-20); BUN (Urea Nitrogen) 17 mg/dL (8.4-25.7); Calc. Creatinine Clearance 0 mL/min (70-130); Calcium 8.9 mg/dL (7.8-10.44); Carbon Dioxide 20 mmol/L (23-31); Chloride 109 mmol/L (98-107); Estimated GFR-MDRD 61; Glucose 99 mg/dL (80-115); Potassium 3.9 mmol/L (3.5-5.1); Sodium 142 mmol/L (136-145)
[2018-05-04 23:34] LABS: Digoxin 1.39 ng/mL (0.8-2.0)
[2018-05-04 23:40] LABS: CKMB 1.9 ng/mL (0-6.6); Troponin I 0.033 ng/mL (< 0.028)
== END 2018-05-05 00:50 | disposition home or self-care (01) ==
LOC: MADERS 21:47
DX: I11.0 Hypertensive heart disease with heart failure (principal); I50.9 Heart failure, unspecified; I48.91 Unspecified atrial fibrillation; I25.10 Atherosclerotic heart disease of native coronary artery without angina pectoris; E78.5 Hyperlipidemia, unspecified; E11.9 Type 2 diabetes mellitus without complications; M10.9 Gout, unspecified; Z87.891 Personal history of nicotine dependence; Z79.899 Other long term (current) drug therapy; Z79.82 Long term (current) use of aspirin
CPT/HCPCS: 36415; 71045; 80048; 80162; 82553; 83880; 84484; 85025; 93005; 94760; 96374; 96375; J1940; J2930; J7611

== ENCOUNTER 2018-05-13 04:07 | Emergency (ER) | payer MEDICARE ==
[2018-05-13 04:33] LABS: #Basophils 0.1 thou/uL (0.0-0.2); #Eosinphils 0.1 thou/uL (0.0-0.7); #Lymphocytes 2.4 thou/uL (1.20-3.40); #Monocytes 0.7 thou/uL (0.11-0.59); #Neutrophils 4.4 thou/uL (1.40-6.50); %Basophils 1.2 % (0.0-1.0); %Eosinophils 1.2 % (0.0-10.0); %Monocytes 9.5 % (0.0-10.0); %Neutrophils 57.1 % (42.0-75.0); Hemoglobin 12.8 g/dL (14.0-18.0); Mean Corpuscular HGB CONC 32.7 g/dL (32.0-36.0); Mean Corpuscular Hemoglobin 30.3 pg (27.0-31.0); Mean Corpuscular Volume 92.6 fL (78.0-98.0); Mean Platelet Volume 7.4 fL (7.4-10.4); Platelet Count 298 thou/uL (130-400); RBC Distribution Width 14.4 % (11.5-14.5); Red Blood Cell (RBC) Count 4.23 mill/uL (4.70-6.10); White Blood Cell (WBC) Count 7.8 thou/uL (4.8-10.8)
[2018-05-13 04:53] LABS: PTT 28.6 SEC (22.9-36.1)
[2018-05-13 04:54] LABS: CKMB 2.9 ng/mL (0-6.6); INR-International Normal Ratio 1.2; Prothrombin Time 15.2 SEC (12.0-14.7); Troponin I 0.068 ng/mL (< 0.028)
[2018-05-13 04:55] LABS: CK (CPK) 132 U/L (30-200); D-Dimer Test 0.6 *mcg/mL (0.27-0.43)
[2018-05-13 05:15] LABS: ALT (SGPT) 12 U/L (8-55); AST (SGOT) 15 U/L (5-34); Albumin 3.9 g/dL (3.4-4.8); Alkaline Phosphatase 85 U/L (40-150); Anion Gap 18 mmol/L (10-20); BUN (Urea Nitrogen) 20 mg/dL (8.4-25.7); Bilirubin, Total 1.3 mg/dL (0.2-1.2); Calc. Creatinine Clearance 0 mL/min (70-130); Calcium 8.9 mg/dL (7.8-10.44); Carbon Dioxide 22 mmol/L (23-31); Chloride 107 mmol/L (98-107); Estimated GFR-MDRD 67; Globulin 2.8 g/dL (2.4-3.5); Glucose 122 mg/dL (80-115); Potassium 3.6 mmol/L (3.5-5.1); Protein, Total 6.7 g/dL (5.8-8.1); Sodium 143 mmol/L (136-145)
[2018-05-13] MEDS ORDERED: Furosemide 40 MG/4 ML VIAL ONE (05:39)
[2018-05-13] MEDS ORDERED: Nitroglycerin 0.4 MG TAB (25 Tab Bottle) ONE (05:39)
--- NOTE | 2018-05-13 09:47 | RAD ---
PORTABLE AP CHEST RADIOGRAPH: Date: 05-13-18 History: Chest pain. Comparison: 05-04-18 FINDINGS: Single lead left subclavian device is noted in place. Cardiac silhouette is enlarged. The pulmonary v asculature is within normal limits. There is suboptimal evaluation of the left lung base due to large cardiac silhouette. The lungs do appear clear. There has been no interval change from the prior exam . IMPRESSION: 1. No acute cardiopulmonary process. 2. Cardiomegaly. POS: [facility]
== END 2018-05-13 06:01 | disposition left against medical advice (07) ==
LOC: MADERS 04:07
DX: I11.0 Hypertensive heart disease with heart failure (principal); I50.9 Heart failure, unspecified; I48.91 Unspecified atrial fibrillation; I25.10 Atherosclerotic heart disease of native coronary artery without angina pectoris; I25.2 Old myocardial infarction; E78.5 Hyperlipidemia, unspecified; E11.9 Type 2 diabetes mellitus without complications; M10.9 Gout, unspecified; Z87.891 Personal history of nicotine dependence; Z79.899 Other long term (current) drug therapy; Z79.82 Long term (current) use of aspirin
CPT/HCPCS: 71045; 80053; 82550; 82553; 83880; 84484; 85025; 85379; 85610; 85730; 93005; 96374; J1940

== ENCOUNTER 2018-05-19 11:32 | Emergency (ER) | payer MEDICARE ==
[2018-05-19] MEDS ORDERED: traMADol HCl 50 MG TAB ONE (12:00)
[2018-05-19] MEDS ORDERED: predniSONE 20 MG TAB ONE (12:01)
== END 2018-05-19 12:05 | disposition home or self-care (01) ==
LOC: MADERS 11:32
DX: M10.9 Gout, unspecified (principal); I11.0 Hypertensive heart disease with heart failure; I25.10 Atherosclerotic heart disease of native coronary artery without angina pectoris; I48.91 Unspecified atrial fibrillation; I50.9 Heart failure, unspecified; I25.2 Old myocardial infarction; E78.5 Hyperlipidemia, unspecified; E11.9 Type 2 diabetes mellitus without complications; F17.220 Nicotine dependence, chewing tobacco, uncomplicated; Z79.82 Long term (current) use of aspirin; Z79.899 Other long term (current) drug therapy
CPT/HCPCS: 99283; J7506

== ENCOUNTER 2018-06-25 22:25 | Emergency (ER) | payer MEDICARE ==
[2018-06-25] MEDS ORDERED: Colchicine 0.6 MG TAB ONE (22:58)
[2018-06-25] MEDS ORDERED: traMADol HCl 50 MG TAB ONE (23:08)
--- NOTE | 2018-06-26 00:11 | CT ---
NONCONTRAST CT ABDOMEN AND PELVIS 06/25/18 HISTORY: Right sided abdominal pain. COMPARISON: 11/11/15. FINDINGS: There is partial visualization of AICD leads. The heart is mildly enlarged. Mild vascular calcificati ons are seen in the abdominal aorta and involving the iliac arteries. Lung bases are clear. There is a tiny pericardial effusion versus pericardial thickening. This is similar to prior study. Small hiatal hernia is present. Lack of intravenous contrast does limit sensitivity for evaluation of the parenchymal organs. However , the liver, spleen, pancreas, bilateral adrenal glands, kidneys, and incompletely distended urinary bladder demonstrate a grossly normal nonenhanced CT appearance. There is colonic diverticulosis again present. Loops of small bowel are normal in caliber. The appendix is visualized and normal in caliber. The mesenteric inflammatory stranding with the abdomen on the prior exam as well as small amount of f ree fluid has resolved. No free fluid or fluid collection is seen in the abdomen on today's exam. IMPRESSION: 1. No acute findings are seen on this nonenhanced CT scan of the abdomen and pelvis. 2. No renal or ureteral calculi are seen bilaterally. 3. No CT evidence of appendicitis. 4. Colonic diverticulosis. 5. Cardiomegaly with trace pericardial effusion versus minimal pericardial thickening. 6. Small hiatal hernia. 7. Prominent degenerative changes of the spine. 8. Small fat containing left inguinal hernia. POS: [facility]
== END 2018-06-26 00:10 | disposition home or self-care (01) ==
LOC: MADERS 22:25
DX: M10.9 Gout, unspecified (principal); M54.5 Low back pain; I25.10 Atherosclerotic heart disease of native coronary artery without angina pectoris; E11.9 Type 2 diabetes mellitus without complications; I48.91 Unspecified atrial fibrillation; I11.0 Hypertensive heart disease with heart failure; I50.9 Heart failure, unspecified; I25.2 Old myocardial infarction; E78.5 Hyperlipidemia, unspecified; F17.220 Nicotine dependence, chewing tobacco, uncomplicated; Z79.899 Other long term (current) drug therapy; Z79.82 Long term (current) use of aspirin
CPT/HCPCS: 74176

== ENCOUNTER 2018-08-11 02:38 | Emergency (ER) | payer MEDICARE ==
[2018-08-11] MEDS ORDERED: methylPREDNISolone Sod Succ/PF 125 MG/2 ML VIAL ONE (03:30)
[2018-08-11] MEDS ORDERED: Furosemide 40 MG/4 ML VIAL ONE (03:30)
[2018-08-11 03:38] LABS: #Basophils 0.1 thou/uL (0.0-0.2); #Eosinphils 0.1 thou/uL (0.0-0.7); #Lymphocytes 2.1 thou/uL (1.20-3.40); #Monocytes 0.9 thou/uL (0.11-0.59); #Neutrophils 6.5 thou/uL (1.40-6.50); %Eosinophils 1.2 % (0.0-10.0); %Lymphocytes 21.4 % (21.0-51.0); %Monocytes 8.9 % (0.0-10.0); %Neutrophils 67.4 % (42.0-75.0); Hemoglobin 11.5 g/dL (14.0-18.0); Mean Corpuscular HGB CONC 33.3 g/dL (32.0-36.0); Mean Corpuscular Hemoglobin 28.9 pg (27.0-31.0); Mean Corpuscular Volume 86.6 fL (78.0-98.0); Platelet Count 404 thou/uL (130-400); Red Blood Cell (RBC) Count 3.98 mill/uL (4.70-6.10); White Blood Cell (WBC) Count 9.6 thou/uL (4.8-10.8)
[2018-08-11 03:50] LABS: Anion Gap 17 mmol/L (10-20); BUN (Urea Nitrogen) 20 mg/dL (8.4-25.7); Calc. Creatinine Clearance 0 mL/min (70-130); Calcium 9.3 mg/dL (7.8-10.44); Carbon Dioxide 22 mmol/L (23-31); Chloride 105 mmol/L (98-107); Estimated GFR-MDRD 64; Glucose 96 mg/dL (80-115); Potassium 3.7 mmol/L (3.5-5.1); Sodium 140 mmol/L (136-145)
[2018-08-11 03:57] LABS: CKMB 2.6 ng/mL (0-6.6); Troponin I Less than 0.010 ng/mL (< 0.028)
[2018-08-11 04:57] LABS: Digoxin Less than 0.15 ng/mL (0.8-2.0)
--- NOTE | 2018-08-11 08:27 | RAD ---
CHEST 1 VIEW: Date: 08/11/18 HISTORY: Chest pain. Dyspnea. COMPARISON: 05/13/18. FINDINGS: Heart size is enlarged. No pneumothorax. No large effusion. Single lead defibrillator is similar. IMPRESSION: Similar examination of chest with marked cardiomegaly. POS: [facility]
== END 2018-08-11 04:25 | disposition left against medical advice (07) ==
LOC: MADERS 02:38
DX: I48.91 Unspecified atrial fibrillation (principal); I11.0 Hypertensive heart disease with heart failure; I50.9 Heart failure, unspecified; I25.10 Atherosclerotic heart disease of native coronary artery without angina pectoris; E78.5 Hyperlipidemia, unspecified; E11.9 Type 2 diabetes mellitus without complications; M10.9 Gout, unspecified; F17.220 Nicotine dependence, chewing tobacco, uncomplicated; Z79.899 Other long term (current) drug therapy; Z79.82 Long term (current) use of aspirin
CPT/HCPCS: 36415; 71045; 80048; 80162; 82553; 83880; 84484; 85025; 93005; 94760; 96374; 96375; J1940; J2930

== ENCOUNTER 2018-08-26 21:45 | Emergency (ER) | payer MEDICARE ==
[2018-08-26] MEDS ORDERED: Acetaminophen 500 MG TAB ONE (22:02)
[2018-08-26] MEDS ORDERED: Nitroglycerin 0.4 MG TAB (25 Tab Bottle) ONE (22:02)
[2018-08-26 22:04] LABS: #Basophils 0.1 thou/uL (0.0-0.2); #Eosinphils 0.1 thou/uL (0.0-0.7); #Lymphocytes 3.9 thou/uL (1.20-3.40); #Neutrophils 4.8 thou/uL (1.40-6.50); %Basophils 1.2 % (0.0-1.0); %Eosinophils 1.2 % (0.0-10.0); %Lymphocytes 39.3 % (21.0-51.0); %Monocytes 9.8 % (0.0-10.0); %Neutrophils 48.5 % (42.0-75.0); Mean Corpuscular HGB CONC 33.6 g/dL (32.0-36.0); Mean Corpuscular Hemoglobin 29.1 pg (27.0-31.0); Mean Corpuscular Volume 86.8 fL (78.0-98.0); Mean Platelet Volume 7.8 fL (7.4-10.4); Platelet Count 299 thou/uL (130-400); RBC Distribution Width 13.3 % (11.5-14.5); Red Blood Cell (RBC) Count 4.11 mill/uL (4.70-6.10)
[2018-08-26 22:22] LABS: ALT (SGPT) 67 U/L (8-55); AST (SGOT) 84 U/L (5-34); Alkaline Phosphatase 105 U/L (40-150); Anion Gap 18 mmol/L (10-20); BUN (Urea Nitrogen) 29 mg/dL (8.4-25.7); Calc. Creatinine Clearance 0 mL/min (70-130); Carbon Dioxide 20 mmol/L (23-31); Estimated GFR-MDRD 52; Globulin 3.4 g/dL (2.4-3.5); Glucose 99 mg/dL (80-115); Protein, Total 7.4 g/dL (5.8-8.1); Sodium 141 mmol/L (136-145)
[2018-08-26 22:25] LABS: CKMB 3.2 ng/mL (0-6.6); Troponin I 0.029 ng/mL (< 0.028)
--- NOTE | 2018-08-26 22:25 | RAD ---
CHEST ONE VIEW: 08/26/18 INDICATION: Chest pain. COMPARISON: Prior exam dated 08/11/18. FINDINGS: There is cardiomegaly with pulmonary vascular congestion. No ama consolidation, or pleural effusion s evident. AICD is unchanged. Osseous structures are similar appearing. IMPRESSION: Cardiomegaly with mild pulmonary vascular congestion. POS: [facility]
[2018-08-26 22:28] LABS: Chloride 106 mmol/L (98-107); Potassium 2.8 mmol/L (3.5-5.1)
[2018-08-26] MEDS ORDERED: Potassium Chloride 20 MEQ TAB ONE (22:28)
[2018-08-26] MEDS ORDERED: Furosemide 40 MG/4 ML VIAL ONE (22:30)
== END 2018-08-26 23:16 | disposition short-term general hospital (02) ==
LOC: MADERS 21:45
DX: I11.0 Hypertensive heart disease with heart failure (principal); I50.9 Heart failure, unspecified; I48.91 Unspecified atrial fibrillation; E87.6 Hypokalemia; I25.10 Atherosclerotic heart disease of native coronary artery without angina pectoris; I25.2 Old myocardial infarction; Z87.891 Personal history of nicotine dependence; E78.5 Hyperlipidemia, unspecified; Z79.82 Long term (current) use of aspirin; Z79.899 Other long term (current) drug therapy; E11.9 Type 2 diabetes mellitus without complications
CPT/HCPCS: 71045; 80053; 82553; 83880; 84484; 85025; 93005; 94760; 96374; 96375; J1940

== ENCOUNTER 2018-09-17 20:37 | Emergency (ER) | payer MEDICARE ==
[2018-09-17] MEDS ORDERED: Morphine 4 MG/ML VIAL ONE (21:26)
[2018-09-17] MEDS ORDERED: Morphine 10 MG/ML VIAL ONE (21:46)
== END 2018-09-17 22:47 | disposition home or self-care (01) ==
LOC: MADERS 20:37
DX: M10.9 Gout, unspecified (principal); I25.10 Atherosclerotic heart disease of native coronary artery without angina pectoris; E11.9 Type 2 diabetes mellitus without complications; I48.91 Unspecified atrial fibrillation; I25.2 Old myocardial infarction; E78.5 Hyperlipidemia, unspecified; I11.0 Hypertensive heart disease with heart failure; I50.9 Heart failure, unspecified; Z87.891 Personal history of nicotine dependence; Z79.899 Other long term (current) drug therapy; Z79.82 Long term (current) use of aspirin
CPT/HCPCS: 93005; 96372; J2270

== ENCOUNTER 2019-01-17 00:03 | Emergency (ER) | payer MEDICARE ==
[2019-01-17 00:53] LABS: #Basophils 0.1 thou/uL (0.0-0.2); #Eosinphils 0.2 thou/uL (0.0-0.7); #Lymphocytes 2.8 thou/uL (1.20-3.40); #Monocytes 0.6 thou/uL (0.11-0.59); #Neutrophils 3.8 thou/uL (1.40-6.50); %Basophils 1.3 % (0.0-1.0); %Eosinophils 2.8 % (0.0-10.0); %Lymphocytes 37.7 % (21.0-51.0); %Monocytes 7.8 % (0.0-10.0); %Neutrophils 50.4 % (42.0-75.0); Hemoglobin 11.7 g/dL (14.0-18.0); Mean Corpuscular HGB CONC 32.3 g/dL (32.0-36.0); Mean Corpuscular Hemoglobin 28.3 pg (27.0-31.0); Mean Corpuscular Volume 87.8 fL (78.0-98.0); Mean Platelet Volume 6.9 fL (7.4-10.4); Platelet Count 350 thou/uL (130-400); RBC Distribution Width 14.5 % (11.5-14.5); Red Blood Cell (RBC) Count 4.14 mill/uL (4.70-6.10); White Blood Cell (WBC) Count 7.5 thou/uL (4.8-10.8)
[2019-01-17 01:12] LABS: ALT (SGPT) 7 U/L (8-55); AST (SGOT) 12 U/L (5-34); Albumin 3.8 g/dL (3.4-4.8); Alkaline Phosphatase 86 U/L (40-150); Anion Gap 16 mmol/L (10-20); BUN (Urea Nitrogen) 17 mg/dL (8.4-25.7); Bilirubin, Total 0.4 mg/dL (0.2-1.2); Calc. Creatinine Clearance 0 mL/min (70-130); Carbon Dioxide 27 mmol/L (23-31); Chloride 104 mmol/L (98-107); Estimated GFR-MDRD 80; Globulin 3.6 g/dL (2.4-3.5); Glucose 103 mg/dL (80-115); Protein, Total 7.4 g/dL (5.8-8.1); Sodium 144 mmol/L (136-145)
[2019-01-17 01:23] LABS: Potassium 2.7 mmol/L (3.5-5.1)
[2019-01-17 01:29] LABS: CKMB 1.8 ng/mL (0-6.6)
[2019-01-17] MEDS ORDERED: Aspirin Chewable 81 MG TAB ONE (03:11)
[2019-01-17] MEDS ORDERED: Metoprolol Tartrate 5 MG/5 ML VIAL ONE (03:11)
--- NOTE | 2019-01-17 08:51 | RAD ---
CHEST 1 VIEW: Date: 01/17/19 INDICATION: Dyspnea. COMPARISON: Prior exam dated 11/19/18. IMPRESSION: There is stable cardiac enlargement. AICD is unchanged. No definite consolidation, pleural effusion, or pneumothorax is evident. POS: [facility]
== END 2019-01-17 03:15 | disposition left against medical advice (07) ==
LOC: MADERS 00:03
DX: R07.9 Chest pain, unspecified (principal); I25.10 Atherosclerotic heart disease of native coronary artery without angina pectoris; E11.9 Type 2 diabetes mellitus without complications; I10 Essential (primary) hypertension; I48.91 Unspecified atrial fibrillation; I25.2 Old myocardial infarction; E78.5 Hyperlipidemia, unspecified; I11.0 Hypertensive heart disease with heart failure; I50.9 Heart failure, unspecified; M10.9 Gout, unspecified; Z87.891 Personal history of nicotine dependence
CPT/HCPCS: 36415; 71045; 80053; 82553; 83880; 84484; 85025; 93005

== ENCOUNTER 2019-04-09 11:41 | Emergency (ER) | payer MEDICARE, OTHER ==
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
--- NOTE | 2019-04-09 13:14 | RAD ---
TWO VIEWS OF THE CHEST: 04/09/19 COMPARISON: 04/09/18 HISTORY: Injury with chest pain. FINDINGS: Two views of the chest show an enlarged but stable cardiomediastinal silhouette. The pacemaker is unc hanged in position. There is no evidence of consolidation, mass, or pleural effusion. IMPRESSION: Cardiomegaly without evidence of acute cardiopulmonary disease. POS: [facility]
--- NOTE | 2019-04-09 14:18 | RAD ---
THORACIC SPINE THREE VIEWS: HISTORY: Injury. Pain. FINDINGS: Limited evaluation of the upper thoracic spine on the Swimmer's view. Based on the images provided, there does appear to be mild loss of vertebral body height at approximately the T10 and possibly the T9 levels. If there is pain or point tenderness in this region, CT is recommended. IMPRESSION: Indeterminate mild loss of vertebral body height in the distal thoracic spine. Consider CT. POS: [facility]
== END 2019-04-09 13:47 | disposition home or self-care (01) ==
LOC: MADERS 11:41
DX: S13.9XXA Sprain of joints and ligaments of unspecified parts of neck, initial encounter (principal); S23.3XXA Sprain of ligaments of thoracic spine, initial encounter; I25.10 Atherosclerotic heart disease of native coronary artery without angina pectoris; E11.9 Type 2 diabetes mellitus without complications; I48.91 Unspecified atrial fibrillation; E78.5 Hyperlipidemia, unspecified; I11.0 Hypertensive heart disease with heart failure; I50.9 Heart failure, unspecified; Z87.891 Personal history of nicotine dependence; Z95.0 Presence of cardiac pacemaker; Z79.82 Long term (current) use of aspirin; Z79.899 Other long term (current) drug therapy; V89.2XXA Person injured in unspecified motor-vehicle accident, traffic, initial encounter
CPT/HCPCS: 70450; 71046; 72072; 72125

== ENCOUNTER 2019-05-29 21:42 | Emergency (ER) | payer MEDICARE ==
--- NOTE | 2019-05-29 22:19 | RAD ---
XR Chest 1 View Portable History: Injury Comparison: Radiograph April 2019 Findings: Heart size markedly enlarged. Single-lead AICD in place. Small effusions. No pneumothorax. Left rotator cuff arthropathy. Impression: Marked cardiomegaly and small effusions.
[2019-05-29 22:20] LABS: #Basophils 0.1 thou/uL (0.0-0.2); #Eosinphils 0.1 thou/uL (0.0-0.7); #Lymphocytes 2.8 thou/uL (1.20-3.40); #Monocytes 0.8 thou/uL (0.11-0.59); #Neutrophils 6.7 thou/uL (1.40-6.50); %Basophils 0.9 % (0.0-1.0); %Eosinophils 0.7 % (0.0-10.0); %Lymphocytes 26.7 % (21.0-51.0); %Neutrophils 63.8 % (42.0-75.0); Hemoglobin 11.5 g/dL (14.0-18.0); Mean Corpuscular Hemoglobin 28.9 pg (27.0-31.0); Mean Corpuscular Volume 87.5 fL (78.0-98.0); Mean Platelet Volume 6.4 fL (7.4-10.4); Platelet Count 291 thou/uL (130-400); RBC Distribution Width 14.3 % (11.5-14.5); Red Blood Cell (RBC) Count 3.99 mill/uL (4.70-6.10); White Blood Cell (WBC) Count 10.6 thou/uL (4.8-10.8)
[2019-05-29 22:37] LABS: ALT (SGPT) 26 U/L (8-55); AST (SGOT) 16 U/L (5-34); Albumin 3.6 g/dL (3.4-4.8); Alkaline Phosphatase 92 U/L (40-150); Anion Gap 16 mmol/L (10-20); BUN (Urea Nitrogen) 20 mg/dL (8.4-25.7); Bilirubin, Total 1.4 mg/dL (0.2-1.2); Calc. Creatinine Clearance 0 mL/min (70-130); Calcium 8.6 mg/dL (7.8-10.44); Carbon Dioxide 24 mmol/L (23-31); Estimated GFR-MDRD 53; Globulin 3.2 g/dL (2.4-3.5); Glucose 125 mg/dL (80-115); Potassium 3.2 mmol/L (3.5-5.1); Protein, Total 6.8 g/dL (5.8-8.1); Sodium 140 mmol/L (136-145)
[2019-05-29 22:54] LABS: Chloride 103 mmol/L (98-107)
[2019-05-29] MEDS ORDERED: Diltiazem 125 MG/25 ML ONE (23:01)
[2019-05-29 23:09] LABS: CKMB 2.2 ng/mL (0-6.6)
[2019-05-29] MEDS ORDERED: Sodium Chloride 0.9% 100 ML ONE (23:22)
[2019-05-29] MEDS ORDERED: Potassium Chloride 20 MEQ TAB ONE (23:33)
[2019-05-29] MEDS ORDERED: Aspirin 325 MG TAB ONE (23:33)
== END 2019-05-30 00:52 | disposition short-term general hospital (02) ==
LOC: MADERS 21:42
DX: I48.91 Unspecified atrial fibrillation (principal); I11.0 Hypertensive heart disease with heart failure; I50.9 Heart failure, unspecified; R79.89 Other specified abnormal findings of blood chemistry; E11.9 Type 2 diabetes mellitus without complications; I25.10 Atherosclerotic heart disease of native coronary artery without angina pectoris; I25.2 Old myocardial infarction; E78.00 Pure hypercholesterolemia, unspecified; M06.9 Rheumatoid arthritis, unspecified; M10.9 Gout, unspecified; F17.220 Nicotine dependence, chewing tobacco, uncomplicated; Z79.82 Long term (current) use of aspirin; Z79.899 Other long term (current) drug therapy; Z95.5 Presence of coronary angioplasty implant and graft
CPT/HCPCS: 36415; 71045; 80053; 82553; 83880; 84484; 85025; 93005; 96365; 96376; J3490

== ENCOUNTER 2019-06-04 10:04 | Emergency (ER) | payer MEDICARE ==
[2019-06-04] MEDS ORDERED: Diltiazem 125 MG/25 ML ONE (10:36)
[2019-06-04] MEDS ORDERED: Sodium Chloride 0.9% 100 ML ONE (10:39)
[2019-06-04] MEDS ORDERED: Aspirin Chewable 81 MG TAB ONE (10:39)
[2019-06-04 10:45] LABS: Eosinophils 3 % (0-10); Hemoglobin 11.9 g/dL (14.0-18.0); Lymphocytes 28 % (21-51); MDiff Complete? YES; Mean Corpuscular HGB CONC 31.7 g/dL (32.0-36.0); Mean Corpuscular Hemoglobin 28.1 pg (27.0-31.0); Mean Corpuscular Volume 88.7 fL (78.0-98.0); Monocytes 4 % (0-10); Neutrophil 65 % (42-75); Platelet Count 315 thou/uL (130-400); RBC Distribution Width 14.9 % (11.5-14.5); Red Blood Cell (RBC) Count 4.24 mill/uL (4.70-6.10); White Blood Cell (WBC) Count 8.4 thou/uL (4.8-10.8)
--- NOTE | 2019-06-04 10:50 | RAD ---
XR Ankle Lt 3 View STANDARD History: Injury Comparison: None. Findings: Obliquely oriented fracture distal fibula to the level of the syndesmosis with one cortex w idth lateral displacement. Marked in the lateral soft tissue swelling. No lateral talar shift. Mild vascular calcifications. Small plantar calcaneal spur. Impression: Minimally displaced distal fibular fracture through the syndesmosis.
[2019-06-04 10:53] LABS: INR-International Normal Ratio 1.5; PTT 29.5 SEC (22.9-36.1); Prothrombin Time 18.4 SEC (12.0-14.7)
[2019-06-04 11:00] LABS: ALT (SGPT) 217 U/L (8-55); AST (SGOT) 178 U/L (5-34); Albumin 3.3 g/dL (3.4-4.8); Alkaline Phosphatase 113 U/L (40-150); Anion Gap 18 mmol/L (10-20); BUN (Urea Nitrogen) 43 mg/dL (8.4-25.7); Bilirubin, Total 1.7 mg/dL (0.2-1.2); CK (CPK) 136 U/L (30-200); Calc. Creatinine Clearance 0 mL/min (70-130); Calcium 8.5 mg/dL (7.8-10.44); Carbon Dioxide 17 mmol/L (23-31); Chloride 106 mmol/L (98-107); Estimated GFR-MDRD 48; Globulin 3.3 g/dL (2.4-3.5); Glucose 206 mg/dL (80-115); Lipase 68 U/L (8-78); Potassium 4.3 mmol/L (3.5-5.1); Protein, Total 6.6 g/dL (5.8-8.1); Sodium 137 mmol/L (136-145)
--- NOTE | 2019-06-04 11:00 | RAD ---
PORTABLE CHEST ONE VIEW: Date: 06-04-19 at 10:39 a.m. History: Chest pain FINDINGS/IMPRESSION: Comparison made with exam of 12-27-18. The heart is enlarged. Left sided ICD remains in place. The lungs are well expanded without focal are as of consolidation, pneumothoraces, ama pulmonary edema or large effusions. POS: [facility]
[2019-06-04 11:02] LABS: Digoxin Less than 0.15 ng/mL (0.8-2.0)
--- NOTE | 2019-06-04 11:13 | CT ---
CT BRAIN NONCONTRAST: DATE: 06/04/2019 HISTORY: 64-year-old male status post acute head trauma with loss of consciousness from fall due to seizure. FINDINGS: There is no evidence of acute intra-axial or extra-axial hemorrhage. There is no midline shift or any other mass effect. There is no extra-axial fluid collection. There is no evidence of obstructive hydrocephalus. Calvarium is intact. IMPRESSION: No acute intracranial findings.
[2019-06-04 11:16] LABS: CKMB 3.4 ng/mL (0-6.6)
[2019-06-04] MEDS ORDERED: Enoxaparin Sodium 30 MG/0.3 ML SYRINGE ONE (11:59)
[2019-06-04] MEDS ORDERED: Enoxaparin Sodium 60 MG/0.6 ML SYRINGE ONE (11:59)
[2019-06-04] MEDS ORDERED: Enoxaparin Sodium 40 MG/0.4 ML SYRINGE ONE (12:00)
[2019-06-04] MEDS ORDERED: Morphine 4 MG/ML VIAL ONE (12:09)
== END 2019-06-04 11:55 | disposition short-term general hospital (02) ==
LOC: MADERS 10:04
DX: S82.832A Other fracture of upper and lower end of left fibula, initial encounter for closed fracture (principal); I48.91 Unspecified atrial fibrillation; R55 Syncope and collapse; I25.10 Atherosclerotic heart disease of native coronary artery without angina pectoris; E11.9 Type 2 diabetes mellitus without complications; I11.0 Hypertensive heart disease with heart failure; I50.9 Heart failure, unspecified; I25.2 Old myocardial infarction; E78.00 Pure hypercholesterolemia, unspecified; M10.9 Gout, unspecified; M06.9 Rheumatoid arthritis, unspecified; F17.220 Nicotine dependence, chewing tobacco, uncomplicated; Z95.5 Presence of coronary angioplasty implant and graft; Z95.0 Presence of cardiac pacemaker; Z79.899 Other long term (current) drug therapy; Z79.82 Long term (current) use of aspirin; X50.1XXA Overexertion from prolonged static or awkward postures, initial encounter
CPT/HCPCS: 29515; 36415; 70450; 71045; 80053; 80162; 82550; 82553; 83690; 83735; 83880; 84484; 85025; 85610; 85730; 93005; 94760; 96365; 96366; 96372; 96375; 96376; J1650; J2270; J3490

== ENCOUNTER 2019-06-11 17:46 | Inpatient (IN) | payer MEDICARE ==
[2019-06-11] MEDS ORDERED: Acetaminophen 325 MG TAB PO PRN (23:06)
[2019-06-11] MEDS ORDERED: Apixaban 5 MG TAB PO SCH (23:15)
[2019-06-11] MEDS: HYDROcodone/Acetaminophen 10/325 mg Tablet PO PRN (23:25)
[2019-06-12] MEDS: Carvedilol 12.5 MG TAB PO SCH ×2 (07:56→17:07)
[2019-06-12] MEDS: HYDROcodone/Acetaminophen 10/325 mg Tablet PO PRN (07:57)
[2019-06-12] MEDS: Bumetanide 1 MG TAB PO SCH ×2 (08:35→14:44)
[2019-06-12] MEDS: Potassium Chloride 20 MEQ TAB PO SCH (08:36)
[2019-06-12] MEDS: Allopurinol 100 MG TAB PO SCH ×2 (08:36→20:21)
[2019-06-12] MEDS: Colchicine 0.6 MG TAB PO SCH ×2 (08:36→20:22)
[2019-06-12] MEDS: Digoxin 0.125 MG TAB PO SCH (08:36)
[2019-06-12] MEDS: Lisinopril 5 MG TAB PO SCH (08:36)
[2019-06-12] MEDS: Apixaban 5 MG TAB PO SCH ×2 (08:36→20:22)
[2019-06-12] MEDS: Acetaminophen/Codeine 30-300mg Tablet PO PRN ×2 (14:47→20:24)
[2019-06-12] MEDS: Atorvastatin Calcium 10 MG TAB PO SCH (20:22)
[2019-06-12] MEDS ORDERED: Simvastatin 20 MG TAB PO SCH (21:00)
--- NOTE | 2019-06-13 01:55 | HP ---
PRIMARY CARE PHYSICIAN: Aubree Chavira MD REASON FOR ADMISSION: For skilled rehabilitation at [facility], status post recent hospitalization in [place], status post acute on chronic CHF exacerbation, gait instability, and left distal fibula fracture. HISTORY OF PRESENT ILLNESS: Mr. Abhilash Eden is a 64-year-old patient, who is very noncompliant and has had multiple recent hospitalizations in [facility] in [place]. He was initially admitted on May 20 for acute on chronic CHF exacerbation and atrial fibrillation with rapid ventricular response. The patient decided to go home on the 22 of May and returned to the emergency room on May 30, where he was admitted till the and he decided to go home against medical advice again for the some reasons. The patient subsequently returned to the emergency room on June 04, with complaints of a syncopal episode and seizure-like episodes. The patient stated that he had not been feeling well for a couple of days. He presented to his car, passed out, he woke up on the floor, and went to a friend's house, where he had 2 seizure-like episodes in his friend's car and he was eventually brought to the emergency room. The patient was subsequently admitted for syncope and atrial fibrillation with rapid ventricular response. He was started on Cardizem drip in the emergency room and Cardiology was consulted. Per patient's , he could not afford the Eliquis and had not been taking it. He does have acute on chronic CHF with an ejection fraction of 10% to 15% with severe mitral regurgitation and severe tricuspid regurgitation. The patient was seen by Soap Worker, Dr. Escobar, who recommended he continue his cardiac medications. He was seen by Arrhythymia lead investigator, Dr. Johnson. Dr. Johnson did an ICD lead revision as his AICD has been turned off since 2014. This revision helped, and the AICD implant was functioning well. He is to follow up with Dr. Johnson in two weeks. During hospitalization, he continued to complain of left leg pain during his syncopal episode as he had a fall. X-ray of the knee was done, which showed moderate to severe osteoporosis and prominent joint capsular distension. The patient also was noted to have a minimally displaced distal fibula fracture on the left. He was seen by Dr. Snyder, who recommended treatments nonsurgically and continue with well-molded splint and to follow up as an outpatient for a short-leg cast or a walker boot. The patient was also recommended to be nonweightbearing until seen by orthopedic surgeon. His left knee continued to worsen, and the patient did have aspiration of the effusion and was noted to be a gout flare-up. He denied chest pain. Syncopal episode improved per Cardiology. He cannot tolerate any more CHF medications, and he is to continue with [place] inhibitor and beta-raffaele. Compliance reinforced and due to multiple recent hospitalizations and his gait instability , the decision was made to transfer the patient to [facility] for physical therapy prior to discharge to his home. When I saw the patient today, he was alert, awake, oriented x3. He was excited to be back in the hospital in [place] to start physical therapy. He denies any chest pain, shortness of breath, or palpitation. He agrees he needs to be more compliant with his diet, medications, and followups. PAST MEDICAL HISTORY: Hypertension; chronic atrial fibrillation; AICD; gout; chronic systolic congestive heart failure with an EF of 10% to 15%; severe pulmonary hypertension; chronic kidney disease, stage 3; diabetes, type 2; dyslipidemia; and history of cocaine abuse. PAST SURGICAL HISTORY: Status post ablation of SVT in 2008, AICD placement, and cardiac cath with stent placement. ALLERGIES: PENICILLIN. FAMILY HISTORY: Unknown. SOCIAL HISTORY: The patient lives at home with his . He denies recent drug use, but does have a history of substance abuse with cocaine and marijuana. He denies alcohol use in the last year and chews tobacco. CURRENT MEDICATIONS: 1. Tylenol 3 two tabs p.r.n. 2. [place] 1 tab p.r.n. pain. 3. Allopurinol 100 b.i.d. 4. Eliquis 2.5 b.i.d. 5. Lipitor 10 at bedtime. 6. Bumex 1 mg b.i.d. 7. Coreg 12.5 mg b.i.d. 8. Colchicine 0.6 mg b.i.d. 9. Digoxin 0.125. 10. Glipizide 5. 11. Lisinopril 5. 12. Protonix 40. 13. Potassium chloride 20 mEq daily. CODE STATUS: Full code. REVIEW OF SYSTEMS: GENERAL: Denies any nausea or vomiting. Complains of pain to his left lower leg. HEENT: Denies nosebleed, trouble swallowing, oral pain, vision changes, or dysphagia. CHEST: Denies chest pain, shortness of breath, palpitation, or dizziness. RESPIRATORY: Denies cough, shortness of breath, or wheezing. ABDOMEN: Denies abdominal pain, nausea, vomiting, or diarrhea. GENITOURINARY: Denies dysuria or hematuria. SKIN: Denies blisters. NEUROLOGICAL: Denies any focal deficits. PSYCHIATRY: No anxiety or depression. MUSCULOSKELETAL: Complains of gait instability. Complains of left ankle and lower leg pain. PHYSICAL EXAMINATION: VITAL SIGNS: Temperature 96.8, pulse 109, respirations 24, O2 saturation 100% on 2 L nasal cannula, and blood pressure 127/63. GENERAL: The patient is alert, awake, oriented x3, sitting up in bed, no apparent distress. HEENT: Normocephalic, atraumatic. PERRL. Anicteric sclerae. Oral mucous membranes moist. NECK: Supple. No JVD. CHEST: Clear to auscultation bilaterally. HEART: S1 and S2, but irregularly irregular rhythm. ABDOMEN: Positive bowel sounds. Soft, nontender, nondistended. EXTREMITIES: Trace edema bilaterally. SKIN: No rashes. NEURO: No focal deficits. ASSESSMENT: 1. Gait instability. 2. Acute on chronic congestive heart failure exacerbation with an ejection fraction of 10% to 15%. 3. Automatic implantable cardioverter-defibrillator in place, status post RV lead revision. 4. Nonsustained ventricular tachycardia. 5. Noncompliance. 6. Gout, status post left knee effusion. 7. Diabetes, type 2. 8. Left fibula fracture. PLAN: The patient is being admitted to [facility] for skilled rehabilitation and gait strengthening. We will consult Physical Therapy for strengthening in order to gain modified independence with his gait. We will consult occupational therapist to help with activities of daily living. We will resume home medications. We will place the patient on a strict I's and O's with a fluid restriction of [address] the patient on a heart healthy, low-sodium diet. We will place the patient on daily weights. We will do Accu-Cheks, fasting. We will place the patient on Eliquis 2.5 [address] We will place the patient on Protonix daily for GI prophylaxis. The patient to follow up with orthopedic doctor, Dr. Snyder in a week and follow up with Dr. Johnson in two weeks. He is to follow up with Dr. Escobar as an outpatient. We will monitor the patient closely for any hemodynamic instability. ESTIMATED LENGTH OF STAY: 2 to 3 weeks. DISPOSITION: To home. Job ID: [id number] [id number]
[2019-06-13] MEDS: Acetaminophen/Codeine 30-300mg Tablet PO PRN ×2 (01:58→21:02)
[2019-06-13] MEDS: Carvedilol 12.5 MG TAB PO SCH ×2 (07:55→17:24)
[2019-06-13] MEDS: Apixaban 5 MG TAB PO SCH ×2 (08:37→21:00)
[2019-06-13] MEDS: Allopurinol 100 MG TAB PO SCH ×2 (08:37→21:01)
[2019-06-13] MEDS: Bumetanide 1 MG TAB PO SCH ×2 (08:38→14:29)
[2019-06-13] MEDS: Lisinopril 5 MG TAB PO SCH (08:38)
[2019-06-13] MEDS: Digoxin 0.125 MG TAB PO SCH (08:38)
[2019-06-13] MEDS: Potassium Chloride 20 MEQ TAB PO SCH (08:39)
[2019-06-13] MEDS: Colchicine 0.6 MG TAB PO SCH ×2 (08:39→21:01)
[2019-06-13] MEDS: Atorvastatin Calcium 10 MG TAB PO SCH (21:01)
[2019-06-14] MEDS: Acetaminophen/Codeine 30-300mg Tablet PO PRN ×2 (04:30→22:07)
[2019-06-14] MEDS: Bumetanide 1 MG TAB PO SCH ×2 (08:25→14:44)
[2019-06-14] MEDS: Potassium Chloride 20 MEQ TAB PO SCH (08:25)
[2019-06-14] MEDS: Carvedilol 12.5 MG TAB PO SCH ×2 (08:26→17:05)
[2019-06-14] MEDS: Apixaban 5 MG TAB PO SCH ×2 (08:27→20:26)
[2019-06-14] MEDS: Allopurinol 100 MG TAB PO SCH ×2 (08:27→20:22)
[2019-06-14] MEDS: Digoxin 0.125 MG TAB PO SCH (08:27)
[2019-06-14] MEDS: Lisinopril 5 MG TAB PO SCH (08:28)
[2019-06-14] MEDS: Colchicine 0.6 MG TAB PO SCH ×2 (08:33→20:27)
[2019-06-14] MEDS: Atorvastatin Calcium 10 MG TAB PO SCH (20:27)
[2019-06-14] MEDS: Benzonatate 100 MG CAP PO PRN (22:46)
[2019-06-15] MEDS: Carvedilol 12.5 MG TAB PO SCH ×2 (08:04→17:05)
[2019-06-15] MEDS: Allopurinol 100 MG TAB PO SCH ×2 (08:05→20:44)
[2019-06-15] MEDS: Lisinopril 5 MG TAB PO SCH (08:05)
[2019-06-15] MEDS: Potassium Chloride 20 MEQ TAB PO SCH (08:05)
[2019-06-15] MEDS: Apixaban 5 MG TAB PO SCH ×2 (08:05→20:43)
[2019-06-15] MEDS: Bumetanide 1 MG TAB PO SCH ×2 (08:06→14:47)
[2019-06-15] MEDS: Colchicine 0.6 MG TAB PO SCH ×2 (08:06→20:43)
[2019-06-15] MEDS: Digoxin 0.125 MG TAB PO SCH (08:06)
[2019-06-15] MEDS: HYDROcodone/Acetaminophen 10/325 mg Tablet PO PRN (14:50)
[2019-06-15] MEDS: Atorvastatin Calcium 10 MG TAB PO SCH (20:43)
[2019-06-16] MEDS: HYDROcodone/Acetaminophen 10/325 mg Tablet PO PRN ×2 (04:31→20:21)
[2019-06-16] MEDS: Carvedilol 12.5 MG TAB PO SCH ×2 (08:07→17:10)
[2019-06-16] MEDS: Allopurinol 100 MG TAB PO SCH ×2 (08:07→20:23)
[2019-06-16] MEDS: Bumetanide 1 MG TAB PO SCH ×2 (08:07→14:08)
[2019-06-16] MEDS: Potassium Chloride 20 MEQ TAB PO SCH (08:07)
[2019-06-16] MEDS: Lisinopril 5 MG TAB PO SCH (08:07)
[2019-06-16] MEDS: Colchicine 0.6 MG TAB PO SCH ×2 (08:07→20:24)
[2019-06-16] MEDS: Apixaban 5 MG TAB PO SCH ×2 (08:08→20:24)
[2019-06-16] MEDS: Digoxin 0.125 MG TAB PO SCH (08:08)
[2019-06-16] MEDS: Atorvastatin Calcium 10 MG TAB PO SCH (20:23)
[2019-06-17] MEDS: Colchicine 0.6 MG TAB PO SCH ×2 (07:59→20:13)
[2019-06-17] MEDS: Bumetanide 1 MG TAB PO SCH ×2 (08:00→14:30)
[2019-06-17] MEDS: Potassium Chloride 20 MEQ TAB PO SCH (08:00)
[2019-06-17] MEDS: Lisinopril 5 MG TAB PO SCH (08:00)
[2019-06-17] MEDS: Allopurinol 100 MG TAB PO SCH ×2 (08:00→20:14)
[2019-06-17] MEDS: Carvedilol 12.5 MG TAB PO SCH ×2 (08:00→17:29)
[2019-06-17] MEDS: Apixaban 5 MG TAB PO SCH ×2 (08:00→20:13)
[2019-06-17] MEDS: Digoxin 0.125 MG TAB PO SCH (08:02)
[2019-06-17] MEDS: HYDROcodone/Acetaminophen 10/325 mg Tablet PO PRN (09:04)
--- NOTE | 2019-06-17 15:21 | RAD ---
PORTABLE CHEST: Date: 06/17/19 INDICATION: Dyspnea. FINDINGS: Cardiomegaly. Mild vascular engorgement. No focal infiltrate or significant edema apparent. No signif icant effusion. IMPRESSION: Cardiomegaly with mild vascular engorgement. POS: [facility]
[2019-06-17 15:32] LABS: #Basophils 0.1 thou/uL (0.0-0.2); #Eosinphils 0.1 thou/uL (0.0-0.7); #Lymphocytes 2.3 thou/uL (1.20-3.40); #Monocytes 0.7 thou/uL (0.11-0.59); #Neutrophils 3.9 thou/uL (1.40-6.50); %Basophils 0.8 % (0.0-1.0); %Lymphocytes 32.6 % (21.0-51.0); %Monocytes 9.8 % (0.0-10.0); %Neutrophils 55.8 % (42.0-75.0); Hemoglobin 11.4 g/dL (14.0-18.0); Mean Corpuscular Hemoglobin 28.2 pg (27.0-31.0); Mean Corpuscular Volume 88.1 fL (78.0-98.0); Mean Platelet Volume 6.6 fL (7.4-10.4); Platelet Count 306 thou/uL (130-400); RBC Distribution Width 15.2 % (11.5-14.5); Red Blood Cell (RBC) Count 4.02 mill/uL (4.70-6.10); White Blood Cell (WBC) Count 6.9 thou/uL (4.8-10.8)
[2019-06-17 15:48] LABS: Anion Gap 14 mmol/L (10-20); BUN (Urea Nitrogen) 28 mg/dL (8.4-25.7); Calc. Creatinine Clearance 84 mL/min (70-130); Calcium 9.1 mg/dL (7.8-10.44); Carbon Dioxide 25 mmol/L (23-31); Chloride 103 mmol/L (98-107); Estimated GFR-MDRD 72; Glucose 108 mg/dL (80-115); Potassium 4.4 mmol/L (3.5-5.1); Sodium 138 mmol/L (136-145)
[2019-06-17] MEDS ORDERED: Bumetanide 1 MG TAB PO SCH (17:15)
[2019-06-17] MEDS: Atorvastatin Calcium 10 MG TAB PO SCH (20:14)
[2019-06-18] MEDS: HYDROcodone/Acetaminophen 10/325 mg Tablet PO PRN ×2 (00:42→21:07)
[2019-06-18] MEDS: Bumetanide 1 MG TAB PO SCH ×2 (09:12→14:24)
[2019-06-18] MEDS: Potassium Chloride 20 MEQ TAB PO SCH (09:12)
[2019-06-18] MEDS: Carvedilol 12.5 MG TAB PO SCH ×2 (09:12→16:54)
[2019-06-18] MEDS: Allopurinol 100 MG TAB PO SCH ×2 (09:13→21:06)
[2019-06-18] MEDS: Colchicine 0.6 MG TAB PO SCH ×2 (09:13→21:06)
[2019-06-18] MEDS: Apixaban 5 MG TAB PO SCH ×2 (09:13→22:21)
[2019-06-18] MEDS: Lisinopril 5 MG TAB PO SCH (09:13)
[2019-06-18] MEDS: Digoxin 0.125 MG TAB PO SCH (09:14)
[2019-06-18] MEDS: Atorvastatin Calcium 10 MG TAB PO SCH (21:06)
[2019-06-19] MEDS: Benzonatate 100 MG CAP PO PRN (01:07)
[2019-06-19] MEDS: Carvedilol 12.5 MG TAB PO SCH ×2 (07:48→17:04)
[2019-06-19] MEDS: Bumetanide 1 MG TAB PO SCH ×2 (10:25→14:54)
[2019-06-19] MEDS: Lisinopril 5 MG TAB PO SCH (10:26)
[2019-06-19] MEDS: Colchicine 0.6 MG TAB PO SCH ×2 (10:26→20:57)
[2019-06-19] MEDS: Allopurinol 100 MG TAB PO SCH ×2 (10:26→20:57)
[2019-06-19] MEDS: Digoxin 0.125 MG TAB PO SCH (10:26)
[2019-06-19] MEDS: Potassium Chloride 20 MEQ TAB PO SCH (10:26)
[2019-06-19] MEDS: Apixaban 5 MG TAB PO SCH ×2 (10:26→20:57)
[2019-06-19] MEDS ORDERED: Clotrimazole 1% Cream 15 GM TUBE TOP PRN (18:26)
[2019-06-19] MEDS: Atorvastatin Calcium 10 MG TAB PO SCH (20:56)
[2019-06-19] MEDS: Clotrimazole 1% Cream 15 GM TUBE TOP SCH (21:00)
[2019-06-20] MEDS: HYDROcodone/Acetaminophen 10/325 mg Tablet PO PRN ×2 (02:20→21:24)
[2019-06-20] MEDS: Bumetanide 1 MG TAB PO SCH ×2 (09:06→14:11)
[2019-06-20] MEDS: Carvedilol 12.5 MG TAB PO SCH ×2 (09:07→16:29)
[2019-06-20] MEDS: Potassium Chloride 20 MEQ TAB PO SCH (09:08)
[2019-06-20] MEDS: Colchicine 0.6 MG TAB PO SCH ×2 (09:08→21:24)
[2019-06-20] MEDS: Apixaban 5 MG TAB PO SCH ×2 (09:09→21:24)
[2019-06-20] MEDS: Clotrimazole 1% Cream 15 GM TUBE TOP SCH ×2 (09:10→21:26)
[2019-06-20] MEDS: Digoxin 0.125 MG TAB PO SCH (09:12)
[2019-06-20] MEDS: Lisinopril 5 MG TAB PO SCH (09:19)
[2019-06-20] MEDS: Allopurinol 100 MG TAB PO SCH ×2 (09:19→21:24)
[2019-06-20] MEDS: Atorvastatin Calcium 10 MG TAB PO SCH (21:24)
[2019-06-21] MEDS: Potassium Chloride 20 MEQ TAB PO SCH (08:03)
[2019-06-21] MEDS: Apixaban 5 MG TAB PO SCH ×2 (08:03→20:10)
[2019-06-21] MEDS: Bumetanide 1 MG TAB PO SCH ×2 (08:03→13:43)
[2019-06-21] MEDS: Clotrimazole 1% Cream 15 GM TUBE TOP SCH ×2 (08:04→20:12)
[2019-06-21] MEDS: Lisinopril 5 MG TAB PO SCH (08:04)
[2019-06-21] MEDS: Carvedilol 12.5 MG TAB PO SCH ×2 (08:04→16:51)
[2019-06-21] MEDS: Colchicine 0.6 MG TAB PO SCH ×2 (08:04→20:09)
[2019-06-21] MEDS: Allopurinol 100 MG TAB PO SCH (08:04)
[2019-06-21] MEDS: Digoxin 0.125 MG TAB PO SCH (08:05)
[2019-06-21] MEDS ORDERED: Sodium Chloride Irrig Solution 250 ML BOT ONE (12:17)
[2019-06-21] MEDS ORDERED: Allopurinol 100 MG TAB PO SCH (13:30)
[2019-06-21] MEDS: HYDROcodone/Acetaminophen 10/325 mg Tablet PO PRN (13:50)
[2019-06-21] MEDS: Atorvastatin Calcium 10 MG TAB PO SCH (20:09)
[2019-06-22] MEDS: HYDROcodone/Acetaminophen 10/325 mg Tablet PO PRN ×3 (02:21→23:07)
[2019-06-22] MEDS: Lisinopril 5 MG TAB PO SCH (08:19)
[2019-06-22] MEDS: Apixaban 5 MG TAB PO SCH ×2 (08:19→21:09)
[2019-06-22] MEDS: Potassium Chloride 20 MEQ TAB PO SCH (08:19)
[2019-06-22] MEDS: Digoxin 0.125 MG TAB PO SCH (08:19)
[2019-06-22] MEDS: Carvedilol 12.5 MG TAB PO SCH ×2 (08:19→17:27)
[2019-06-22] MEDS: Colchicine 0.6 MG TAB PO SCH ×2 (08:19→21:09)
[2019-06-22] MEDS: Bumetanide 1 MG TAB PO SCH ×2 (08:19→14:51)
[2019-06-22] MEDS: Clotrimazole 1% Cream 15 GM TUBE TOP SCH ×2 (08:20→21:10)
[2019-06-22] MEDS: Allopurinol 100 MG TAB PO SCH (08:20)
[2019-06-22 10:22] VITALS: BMI 27.7
[2019-06-22] MEDS: Atorvastatin Calcium 10 MG TAB PO SCH (21:09)
[2019-06-23] MEDS: Carvedilol 12.5 MG TAB PO SCH ×2 (08:50→16:54)
[2019-06-23] MEDS: Allopurinol 100 MG TAB PO SCH (08:50)
[2019-06-23] MEDS: Digoxin 0.125 MG TAB PO SCH (08:51)
[2019-06-23] MEDS: Colchicine 0.6 MG TAB PO SCH ×2 (08:51→21:30)
[2019-06-23] MEDS: Bumetanide 1 MG TAB PO SCH ×2 (08:51→16:54)
[2019-06-23] MEDS: Apixaban 5 MG TAB PO SCH ×2 (08:51→21:30)
[2019-06-23] MEDS: Potassium Chloride 20 MEQ TAB PO SCH (08:51)
[2019-06-23] MEDS: Lisinopril 5 MG TAB PO SCH (08:51)
[2019-06-23] MEDS: Clotrimazole 1% Cream 15 GM TUBE TOP SCH ×2 (08:52→21:30)
[2019-06-23] MEDS: HYDROcodone/Acetaminophen 10/325 mg Tablet PO PRN (21:30)
[2019-06-23] MEDS: Atorvastatin Calcium 10 MG TAB PO SCH (21:30)
[2019-06-24 05:35] LABS: Hemoglobin 11.4 g/dL (14.0-18.0); Platelet Count 334 thou/uL (130-400)
[2019-06-24] MEDS: Colchicine 0.6 MG TAB PO SCH ×2 (09:06→21:43)
[2019-06-24] MEDS: Potassium Chloride 20 MEQ TAB PO SCH (09:06)
[2019-06-24] MEDS: Bumetanide 1 MG TAB PO SCH ×2 (09:06→16:59)
[2019-06-24] MEDS: Apixaban 5 MG TAB PO SCH ×2 (09:07→21:43)
[2019-06-24] MEDS: Allopurinol 100 MG TAB PO SCH (09:07)
[2019-06-24] MEDS: Lisinopril 5 MG TAB PO SCH (09:07)
[2019-06-24] MEDS: Carvedilol 12.5 MG TAB PO SCH ×2 (09:07→16:59)
[2019-06-24] MEDS: Digoxin 0.125 MG TAB PO SCH (09:10)
[2019-06-24] MEDS: Clotrimazole 1% Cream 15 GM TUBE TOP SCH ×2 (09:11→21:43)
[2019-06-24] MEDS: HYDROcodone/Acetaminophen 10/325 mg Tablet PO PRN (14:25)
[2019-06-24] MEDS: Atorvastatin Calcium 10 MG TAB PO SCH (21:43)
[2019-06-25] MEDS: HYDROcodone/Acetaminophen 10/325 mg Tablet PO PRN ×2 (02:41→23:08)
[2019-06-25] MEDS: Potassium Chloride 20 MEQ TAB PO SCH (08:25)
[2019-06-25] MEDS: Carvedilol 12.5 MG TAB PO SCH ×2 (08:25→17:00)
[2019-06-25] MEDS: Colchicine 0.6 MG TAB PO SCH ×2 (08:25→20:11)
[2019-06-25] MEDS: Apixaban 5 MG TAB PO SCH ×2 (08:26→20:10)
[2019-06-25] MEDS: Lisinopril 5 MG TAB PO SCH (08:26)
[2019-06-25] MEDS: Allopurinol 100 MG TAB PO SCH (08:26)
[2019-06-25] MEDS: Digoxin 0.125 MG TAB PO SCH (08:27)
[2019-06-25] MEDS: Clotrimazole 1% Cream 15 GM TUBE TOP SCH ×2 (08:28→23:11)
[2019-06-25] MEDS: Bumetanide 1 MG TAB PO SCH ×2 (08:29→17:00)
[2019-06-25] MEDS: Atorvastatin Calcium 10 MG TAB PO SCH (20:11)
[2019-06-26 06:40] LABS: Anion Gap 14 mmol/L (10-20); BUN (Urea Nitrogen) 26 mg/dL (8.4-25.7); Calc. Creatinine Clearance 77 mL/min (70-130); Calcium 9.1 mg/dL (7.8-10.44); Carbon Dioxide 25 mmol/L (23-31); Chloride 105 mmol/L (98-107); Estimated GFR-MDRD 75; Glucose 86 mg/dL (80-115); Potassium 4.1 mmol/L (3.5-5.1); Sodium 140 mmol/L (136-145)
[2019-06-26 06:52] VITALS: TEMP 98.2
[2019-06-26] MEDS: Carvedilol 12.5 MG TAB PO SCH (07:58)
[2019-06-26] MEDS: Potassium Chloride 20 MEQ TAB PO SCH (07:58)
[2019-06-26] MEDS: Bumetanide 1 MG TAB PO SCH (07:58)
[2019-06-26] MEDS: Allopurinol 100 MG TAB PO SCH (07:59)
[2019-06-26] MEDS: Clotrimazole 1% Cream 15 GM TUBE TOP SCH (07:59)
[2019-06-26] MEDS: Lisinopril 5 MG TAB PO SCH (07:59)
[2019-06-26] MEDS: Colchicine 0.6 MG TAB PO SCH (07:59)
[2019-06-26] MEDS: Digoxin 0.125 MG TAB PO SCH (07:59)
[2019-06-26] MEDS: Apixaban 5 MG TAB PO SCH (07:59)
[2019-06-26 08:02] VITALS: BP 123/65
--- NOTE | 2019-06-27 23:55 | DIS ---
DATE OF ADMISSION: 06/11/2019 DATE OF DISCHARGE: 06/26/2019 DISCHARGE DISPOSITION: Home. DISCHARGE DIAGNOSES: 1. Gait instability. 2. Cajho-yd-pqilavy congestive heart failure with an ejection fraction of 10-15 percent. 3. Automatic implantable cardioverter defibrillator revision. 4. Left fibula fracture. 5. Nonsustained ventricular tachycardia. 6. Diabetes type 2. 7. Gout. DISCHARGE FOLLOWUP: 1. The patient is to follow up with PCP within 5-7 days. 2. The patient to follow up with [facility]. 3. The patient to follow up with orthopedic doctor, Dr. Snyder, 07/15/2019. 4. The patient to follow up with Cardiology, Dr. Escobar on 07/07/2019. 5. Followup with Dr. Johnson, 09/29/2019. DIET: Low sodium fluid restriction diet. ORTHOPEDIC LIMITATION: No weightbearing to left lower extremities. DISCHARGE MEDICATIONS: 1. Bumex 1 mg b.i.d. 2. Allopurinol 100 b.i.d. 3. Tylenol 650 q.4 hours p.r.n. 4. Eliquis 5 mg b.i.d. 5. Aspirin 81 mg daily. 6. Carvedilol 12.5 b.i.d. 7. Colchicine 0.6 b.i.d. 8. Digoxin 0.125 mg daily. 9. Glipizide 5 mg daily. 10. Henry 1 tab p.o. b.i.d. p.r.n. pain x7 days. 11. Lisinopril 5 mg daily. 12. Potassium 20 mEq daily. 13. Zocor 20 mg at bedtime. BRIEF HOSPITAL COURSE: Mr. Eden is a 64-year-old, very noncompliant, male with a history of CHF, AFib with ventricular response, DM2 and Gout. The patient was admitted to [facility] in [place], 3 different times in the last month. The first 2 times he signed out against medical advice and then returned to the emergency room on the 06/04 after a syncopal/seizure-like episode and fracture to the lower extremities. During hospitalization, he was noted to have an gwbvq-wf-bnylesk CHF exacerbation with an EF of 10-15%, severe mitral regurgitation and severe tricuspid regurgitation. He was seen by Cardiology, Dr. Escobar, who adjusted his medications and he was seen by arrhythmia staff nurse, Dr. Johnson, who did an AICD revision and this improved the patient's symptoms. The patient was diuresed and he was able to improve. The patient was seen by orthopedic surgeon, Dr. Snyder due to a displaced distal fibula fracture and he recommended nonsurgical management. He was placed in a short-leg cast and a walker boot and recommended to follow up as an outpatient. The patient's condition progressively improved. His hospitalization initially was complicated by a gouty arthritis with effusion and that was subsequently drained. The patient was transferred to [facility] on 06/11 for acute rehabilitation. He was able to followup with orthopedic surgeon who changed his cast. He progressively improved during hospitalization. He was noted to have worsening of his CHF and his diuretic, Bumex was changed to 2 mg b.i.d. This progressively improved and he was able to be weaned off his oxygen. He had a significant weight loss of about 20 pounds and due to this his lower extremity cast became loose and he was seen by informatics specialist again and they recommended continuation of the cast and nonweightbearing. The patient progressively improved and he was able to follow up with Arrhythmia specialist Dr. Johnson on June 25 and he stated everything was doing well with him. The patient was subsequently discharged home on 06/26. RECOMMENDATIONS: We had recommended outpatient physical therapy, home health for patient and he declined. He states he was going to get into a program. With his , who is able to do home health services for him. PHYSICAL EXAMINATION: DISCHARGE VITAL SIGNS: Temperature 98.2, pulse 78, respirations 14, O2 saturation 92% on room air, blood pressure 131/71. Job ID: [id number] [facility]
== END 2019-06-26 11:45 | disposition home or self-care (01) | DRG 91 ==
LOC: MADMS 21:30
PROVIDERS: ADMIT Family Medicine; ATTEND Family Medicine
DX: R26.81 Unsteadiness on feet (principal); I50.23 Acute on chronic systolic (congestive) heart failure; I13.0 Hypertensive heart and chronic kidney disease with heart failure and stage 1 through stage 4 chronic kidney disease, or unspecified chronic kidney disease; I47.2 Ventricular tachycardia; M10.9 Gout, unspecified; M80.062D Age-related osteoporosis with current pathological fracture, left lower leg, subsequent encounter for fracture with routine healing; I48.2 Chronic atrial fibrillation; N18.3 Chronic kidney disease, stage 3 (moderate); E11.22 Type 2 diabetes mellitus with diabetic chronic kidney disease; E78.5 Hyperlipidemia, unspecified; I27.20 Pulmonary hypertension, unspecified; F17.220 Nicotine dependence, chewing tobacco, uncomplicated; Z88.0 Allergy status to penicillin; Z95.810 Presence of automatic (implantable) cardiac defibrillator; Z91.19 Patient's noncompliance with other medical treatment and regimen
CPT/HCPCS: 36415; 71045; 80048; 82565; 83880; 85014; 85018; 85025; 85049; 94640; J7620

== ENCOUNTER 2019-08-25 02:09 | Emergency (ER) | payer MEDICARE ==
[2019-08-25] MEDS ORDERED: Ketorolac Tromethamine 60 MG/2 ML VIAL ONE (02:36)
[2019-08-25] MEDS ORDERED: predniSONE 20 MG TAB ONE (02:36)
== END 2019-08-25 03:12 | disposition home or self-care (01) ==
LOC: MADERS 02:09
DX: M25.441 Effusion, right hand (principal); M25.431 Effusion, right wrist; E11.9 Type 2 diabetes mellitus without complications; I11.0 Hypertensive heart disease with heart failure; I50.9 Heart failure, unspecified; I48.91 Unspecified atrial fibrillation; I25.2 Old myocardial infarction; E78.00 Pure hypercholesterolemia, unspecified; M06.9 Rheumatoid arthritis, unspecified; F17.220 Nicotine dependence, chewing tobacco, uncomplicated; Z79.82 Long term (current) use of aspirin; Z79.891 Long term (current) use of opiate analgesic; Z79.899 Other long term (current) drug therapy; Z95.5 Presence of coronary angioplasty implant and graft
CPT/HCPCS: 96372; 99283; J1885; J7512

== ENCOUNTER 2019-10-16 02:29 | Emergency (ER) | payer MEDICARE ==
[2019-10-16] MEDS ORDERED: predniSONE 20 MG TAB ONE (02:50)
[2019-10-16] MEDS ORDERED: HYDROcodone/Acetaminophen 5/325 mg Tablet ONE (02:50)
== END 2019-10-16 02:55 | disposition home or self-care (01) ==
LOC: MADERS 02:29
DX: M10.9 Gout, unspecified (principal); I25.10 Atherosclerotic heart disease of native coronary artery without angina pectoris; I48.91 Unspecified atrial fibrillation; I11.0 Hypertensive heart disease with heart failure; I50.9 Heart failure, unspecified; E78.00 Pure hypercholesterolemia, unspecified; M06.9 Rheumatoid arthritis, unspecified; F17.220 Nicotine dependence, chewing tobacco, uncomplicated; Z79.891 Long term (current) use of opiate analgesic; Z79.899 Other long term (current) drug therapy; Z79.82 Long term (current) use of aspirin
CPT/HCPCS: 99282; J7512

== ENCOUNTER 2019-12-07 09:41 | Emergency (ER) | payer MEDICARE ==
--- NOTE | 2019-12-07 10:17 | RAD ---
XR Foot Lt 3 View STANDARD HISTORY: Left foot pain. Findings: There are moderate arthritic changes of the first metatarsophalangeal joint and fairly pron ounced arthritic changes across Lisfranc's joint. There are calcaneal spurs present. Vascular calcifications are noted. There is an obliquely oriented fracture through the second metatarsal neck. It is possible that this is an older injury which is partially healed. Clinical correlation is recommended. There is a foreign body seen in the soft tissues plantar to the base of the fifth metatarsal. IMPRESSION: Foreign body seen along the plantar aspect of the base of the fifth metatarsal. Arthritic changes of the foot. Probable old or incompletely healed second metatarsal neck fracture. Clinical correlation is to any a cute injury to this region.
[2019-12-07] MEDS ORDERED: Adacel (T-DAP) 0.5 ML SYRINGE ONE (11:28)
== END 2019-12-07 11:50 | disposition home or self-care (01) ==
LOC: MADERS 09:41
DX: S90.852A Superficial foreign body, left foot, initial encounter (principal); I25.10 Atherosclerotic heart disease of native coronary artery without angina pectoris; E11.9 Type 2 diabetes mellitus without complications; I11.0 Hypertensive heart disease with heart failure; I50.9 Heart failure, unspecified; I25.2 Old myocardial infarction; E78.00 Pure hypercholesterolemia, unspecified; M06.9 Rheumatoid arthritis, unspecified; F17.220 Nicotine dependence, chewing tobacco, uncomplicated
CPT/HCPCS: 90471; 90715

== ENCOUNTER 2019-12-16 01:12 | Emergency (ER) | payer MEDICARE ==
[2019-12-16] MEDS ORDERED: Sodium Chloride 0.9% 1,000 ML ONE (01:59)
[2019-12-16 02:32] LABS: Hemoglobin 12.1 g/dL (14.0-18.0); Mean Corpuscular HGB CONC 30.9 g/dL (32.0-36.0); Mean Corpuscular Hemoglobin 29.2 pg (27.0-31.0); Mean Corpuscular Volume 94.4 fL (78.0-98.0); Mean Platelet Volume 6.9 fL (7.4-10.4); Platelet Count 441 thou/uL (130-400); RBC Distribution Width 13.7 % (11.5-14.5); Red Blood Cell (RBC) Count 4.15 mill/uL (4.70-6.10); White Blood Cell (WBC) Count 11.7 thou/uL (4.8-10.8)
[2019-12-16 02:45] LABS: Band 3 % (5-11); Eosinophils 2 % (0-10); Hypochromia SLIGHT = 6-15 cells (100X) (0-5/hpf); Lymphocytes 25 % (21-51); MDiff Complete? YES; Monocytes 11 % (0-10); Neutrophil 58 % (42-75); Platelet Morphology Comment Appears Decreased
[2019-12-16 02:46] LABS: Digoxin 0.16 ng/mL (0.8-2.0)
[2019-12-16 02:48] LABS: ALT (SGPT) 12 U/L (8-55); AST (SGOT) 19 U/L (5-34); Alkaline Phosphatase 68 U/L (40-110); Anion Gap 14 mmol/L (10-20); BUN (Urea Nitrogen) 12 mg/dL (8.4-25.7); Bilirubin, Total 0.4 mg/dL (0.2-1.2); Calc. Creatinine Clearance 0 mL/min (70-130); Calcium 8.3 mg/dL (7.8-10.44); Carbon Dioxide 21 mmol/L (23-31); Chloride 104 mmol/L (98-107); Estimated GFR-MDRD Greater than 90; Globulin 3.4 g/dL (2.4-3.5); Glucose 100 mg/dL (80-115); Potassium 4.3 mmol/L (3.5-5.1); Protein, Total 6.4 g/dL (5.8-8.1); Sodium 135 mmol/L (136-145)
[2019-12-16] MEDS ORDERED: Digoxin 0.5 MG/2 ML AMP ONE (02:57)
[2019-12-16] MEDS ORDERED: Fentanyl 100 MCG/2 ML VIAL ONE (03:06)
--- NOTE | 2019-12-16 07:37 | RAD ---
XR Chest 1 View Portable History: Chest pain Comparison: Radiograph December 10, 2019 Findings: Heart size is enlarged. Mild pulmonary venous congestion. No pneumothorax. Trace effusions. Impression: Mild decompensated congestive heart failure.
== END 2019-12-16 08:00 | disposition home or self-care (01) ==
LOC: MADERS 01:12
DX: I48.91 Unspecified atrial fibrillation (principal); M54.5 Low back pain; M25.512 Pain in left shoulder; M25.511 Pain in right shoulder; I11.0 Hypertensive heart disease with heart failure; I50.9 Heart failure, unspecified; I25.10 Atherosclerotic heart disease of native coronary artery without angina pectoris; I25.2 Old myocardial infarction; I49.9 Cardiac arrhythmia, unspecified; E11.9 Type 2 diabetes mellitus without complications; E78.5 Hyperlipidemia, unspecified; E78.00 Pure hypercholesterolemia, unspecified; M10.9 Gout, unspecified; Z79.01 Long term (current) use of anticoagulants; Z79.899 Other long term (current) drug therapy; Z79.82 Long term (current) use of aspirin
CPT/HCPCS: 71045; 80053; 80162; 83880; 84484; 85025; 93005; 96361; 96374; 96375; J1160; J3010; J7050

== ENCOUNTER 2020-01-23 12:08 | Outpatient (CLI) | payer MEDICARE ==
[2020-01-23 12:32] LABS: #Basophils 0.1 thou/uL (0.0-0.2); #Eosinphils 0.2 thou/uL (0.0-0.7); #Lymphocytes 1.7 thou/uL (1.20-3.40); #Monocytes 0.6 thou/uL (0.11-0.59); #Neutrophils 5.8 thou/uL (1.40-6.50); %Eosinophils 2.4 % (0.0-10.0); %Lymphocytes 20.1 % (21.0-51.0); %Monocytes 7.5 % (0.0-10.0); %Neutrophils 68.9 % (42.0-75.0); Hemoglobin 10.2 g/dL (14.0-18.0); Mean Corpuscular HGB CONC 31.4 g/dL (32.0-36.0); Mean Corpuscular Hemoglobin 29.5 pg (27.0-31.0); Mean Corpuscular Volume 93.8 fL (78.0-98.0); Mean Platelet Volume 6.5 fL (7.4-10.4); Platelet Count 357 thou/uL (130-400); RBC Distribution Width 12.9 % (11.5-14.5); Red Blood Cell (RBC) Count 3.45 mill/uL (4.70-6.10); White Blood Cell (WBC) Count 8.4 thou/uL (4.8-10.8)
[2020-01-23 12:33] LABS: ALT (SGPT) Less than 7 U/L (8-55); AST (SGOT) 15 U/L (5-34); Albumin 3.1 g/dL (3.4-4.8); Alkaline Phosphatase 92 U/L (40-110); Anion Gap 15 mmol/L (10-20); BUN (Urea Nitrogen) 15 mg/dL (8.4-25.7); Bilirubin, Total 0.4 mg/dL (0.2-1.2); Calc. Creatinine Clearance 0 mL/min (70-130); Calcium 8.1 mg/dL (7.8-10.44); Carbon Dioxide 27 mmol/L (23-31); Chloride 101 mmol/L (98-107); Estimated GFR-MDRD Greater than 90; Globulin 2.8 g/dL (2.4-3.5); Glucose 113 mg/dL (80-115); Potassium 4.3 mmol/L (3.5-5.1); Protein, Total 5.9 g/dL (5.8-8.1); Sodium 139 mmol/L (136-145)
== END 2020-01-23 12:09 | disposition home or self-care (01) ==
LOC: MADLAB 12:08
PROVIDERS: ATTEND Internal Medicine
DX: Z51.81 Encounter for therapeutic drug level monitoring (principal); I50.9 Heart failure, unspecified; I42.0 Dilated cardiomyopathy; I48.91 Unspecified atrial fibrillation; I27.20 Pulmonary hypertension, unspecified; Z79.899 Other long term (current) drug therapy
CPT/HCPCS: 80053; 83735; 83880; 85025

== ENCOUNTER 2020-02-24 07:09 | Outpatient (CLI) | payer MEDICARE ==
[2020-02-24 07:35] LABS: INR-International Normal Ratio 1.2; Prothrombin Time 15.3 sec (12.0-14.7)
== END 2020-02-24 07:10 | disposition home or self-care (01) ==
LOC: MADLAB 07:09
PROVIDERS: ATTEND Internal Medicine Cardiovascular Disease
DX: I48.20 Chronic atrial fibrillation, unspecified (principal)
CPT/HCPCS: 36415; 85610

== ENCOUNTER 2020-02-25 22:58 | Emergency (ER) | payer MEDICARE ==
[2020-02-25] MEDS ORDERED: Aspirin Chewable 81 MG TAB ONE (23:39)
[2020-02-25] MEDS ORDERED: Metoprolol Tartrate 5 MG/5 ML VIAL ONE (23:50)
[2020-02-25] MEDS ORDERED: Furosemide 40 MG/4 ML VIAL ONE (23:51)
[2020-02-25 23:58] LABS: #Basophils 0.1 thou/uL (0.0-0.2); #Eosinphils 0.2 thou/uL (0.0-0.7); #Lymphocytes 2.1 thou/uL (1.20-3.40); #Monocytes 0.9 thou/uL (0.11-0.59); #Neutrophils 3.5 thou/uL (1.40-6.50); %Basophils 1.4 % (0.0-1.0); %Eosinophils 2.3 % (0.0-10.0); %Lymphocytes 31.1 % (21.0-51.0); %Monocytes 12.9 % (0.0-10.0); %Neutrophils 52.3 % (42.0-75.0); Hemoglobin 9.2 g/dL (14.0-18.0); Mean Corpuscular HGB CONC 30.9 g/dL (32.0-36.0); Mean Corpuscular Hemoglobin 29.8 pg (27.0-31.0); Mean Corpuscular Volume 96.4 fL (78.0-98.0); Mean Platelet Volume 6.5 fL (7.4-10.4); Platelet Count 391 thou/uL (130-400); RBC Distribution Width 15.6 % (11.5-14.5); White Blood Cell (WBC) Count 6.6 thou/uL (4.8-10.8)
[2020-02-26 00:09] LABS: INR-International Normal Ratio 1.3; PTT 30.3 SEC (22.9-36.1); Prothrombin Time 15.7 sec (12.0-14.7)
[2020-02-26 00:10] LABS: D-Dimer Test 0.94 *mcg/mL (0.27-0.43)
[2020-02-26 00:12] LABS: ALT (SGPT) Less than 7 U/L (8-55); AST (SGOT) 18 U/L (5-34); Albumin 3.6 g/dL (3.4-4.8); Alkaline Phosphatase 101 U/L (40-110); Anion Gap 15 mmol/L (10-20); BUN (Urea Nitrogen) 26 mg/dL (8.4-25.7); Bilirubin, Total 0.5 mg/dL (0.2-1.2); CK (CPK) 476 U/L (30-200); Calc. Creatinine Clearance 0 mL/min (70-130); Calcium 8.1 mg/dL (7.8-10.44); Carbon Dioxide 21 mmol/L (23-31); Chloride 107 mmol/L (98-107); Estimated GFR-MDRD 52; Glucose 116 mg/dL (80-115); Protein, Total 6.6 g/dL (5.8-8.1); Sodium 140 mmol/L (136-145)
[2020-02-26 00:18] LABS: CKMB 3.5 ng/mL (0-6.6)
[2020-02-26 00:25] LABS: Potassium 2.9 mmol/L (3.5-5.1)
[2020-02-26] MEDS ORDERED: Potassium Chloride 20 MEQ TAB ONE (01:22)
[2020-02-26] MEDS ORDERED: Furosemide 40 MG/4 ML VIAL ONE (01:22)
--- NOTE | 2020-02-26 07:19 | RAD ---
CHEST 1 VIEW: Date: 02/25/2020 HISTORY: Dyspnea. COMPARISON: Radiograph dated 01/13/2020. FINDINGS: Heart size is enlarged. Mild edema. PICC tip at mid SVC. Small effusions. No pneumothorax. IMPRESSION: 1. Decompensated congestive heart failure. 2. Explanted AICD. POS: HOME
== END 2020-02-26 01:45 | disposition left against medical advice (07) ==
LOC: MADERS 22:58
DX: I11.0 Hypertensive heart disease with heart failure (principal); I50.9 Heart failure, unspecified; I48.91 Unspecified atrial fibrillation; E87.6 Hypokalemia; R79.89 Other specified abnormal findings of blood chemistry; E11.9 Type 2 diabetes mellitus without complications; M10.9 Gout, unspecified; I25.10 Atherosclerotic heart disease of native coronary artery without angina pectoris; I25.2 Old myocardial infarction; E78.5 Hyperlipidemia, unspecified; E78.00 Pure hypercholesterolemia, unspecified; Z79.899 Other long term (current) drug therapy; Z79.82 Long term (current) use of aspirin; Z79.891 Long term (current) use of opiate analgesic; Z79.01 Long term (current) use of anticoagulants
CPT/HCPCS: 36415; 71045; 80053; 82550; 82553; 83605; 83880; 84443; 84484; 85025; 85379; 85610; 85730; 87040; 93005; 94760; 96374; 96375; 96376; J1940

== ENCOUNTER 2020-03-23 07:15 | Outpatient (CLI) | payer MEDICARE ==
[2020-03-23 08:16] LABS: Hemoglobin 9.7 g/dL (14.0-18.0); Mean Corpuscular HGB CONC 29.1 g/dL (32.0-36.0); Mean Corpuscular Hemoglobin 27.4 pg (27.0-31.0); Mean Platelet Volume 7.3 fL (7.4-10.4); Platelet Count 374 thou/uL (130-400); RBC Distribution Width 14.9 % (11.5-14.5); Red Blood Cell (RBC) Count 3.55 mill/uL (4.70-6.10); White Blood Cell (WBC) Count 5.2 thou/uL (4.8-10.8)
[2020-03-23 08:17] LABS: INR-International Normal Ratio 1.1; Prothrombin Time 13.8 sec (12.0-14.7)
[2020-03-23 08:39] LABS: ALT (SGPT) Less than 7 U/L (8-55); AST (SGOT) 17 U/L (5-34); Albumin 3.6 g/dL (3.4-4.8); Alkaline Phosphatase 92 U/L (40-110); Anion Gap 14 mmol/L (10-20); BUN (Urea Nitrogen) 21 mg/dL (8.4-25.7); Bilirubin, Total 0.6 mg/dL (0.2-1.2); CRP (Inflammatory) 0.64 mg/dL (= or < 0.5); Calc. Creatinine Clearance 0 mL/min (70-130); Calcium 8.8 mg/dL (7.8-10.44); Carbon Dioxide 25 mmol/L (23-31); Chloride 107 mmol/L (98-107); Estimated GFR-MDRD 62; Globulin 3.2 g/dL (2.4-3.5); Glucose 100 mg/dL (80-115); Potassium 3.7 mmol/L (3.5-5.1); Protein, Total 6.8 g/dL (5.8-8.1); Sodium 142 mmol/L (136-145)
== END 2020-03-23 07:16 | disposition home or self-care (01) ==
LOC: MADLAB 07:15
PROVIDERS: ATTEND Emergency Medicine
DX: I48.20 Chronic atrial fibrillation, unspecified (principal)
CPT/HCPCS: 36415; 80053; 85027; 85610; 86140

== ENCOUNTER 2020-04-01 07:04 | Outpatient (CLI) | payer MEDICARE ==
[2020-04-01 08:56] LABS: #Eosinphils 0.1 thou/uL (0.0-0.7); #Lymphocytes 1.8 thou/uL (1.20-3.40); #Monocytes 0.6 thou/uL (0.11-0.59); %Basophils 0.7 % (0.0-1.0); %Eosinophils 1.7 % (0.0-10.0); %Lymphocytes 32.7 % (21.0-51.0); %Monocytes 10.8 % (0.0-10.0); %Neutrophils 54.1 % (42.0-75.0); Hemoglobin 9.8 g/dL (14.0-18.0); Mean Corpuscular HGB CONC 29.6 g/dL (32.0-36.0); Mean Corpuscular Volume 91.4 fL (78.0-98.0); Mean Platelet Volume 7.4 fL (7.4-10.4); Platelet Count 314 thou/uL (130-400); RBC Distribution Width 14.5 % (11.5-14.5); Red Blood Cell (RBC) Count 3.63 mill/uL (4.70-6.10); White Blood Cell (WBC) Count 5.6 thou/uL (4.8-10.8)
[2020-04-01 09:03] LABS: ALT (SGPT) Less than 7 U/L (8-55); AST (SGOT) 17 U/L (5-34); Albumin 3.7 g/dL (3.4-4.8); Alkaline Phosphatase 111 U/L (40-110); Anion Gap 16 mmol/L (10-20); BUN (Urea Nitrogen) 18 mg/dL (8.4-25.7); Bilirubin, Total 0.6 mg/dL (0.2-1.2); CRP (Inflammatory) 0.68 mg/dL (= or < 0.5); Calc. Creatinine Clearance 0 mL/min (70-130); Calcium 8.4 mg/dL (7.8-10.44); Carbon Dioxide 23 mmol/L (23-31); Chloride 107 mmol/L (98-107); Estimated GFR-MDRD 63; Globulin 3.3 g/dL (2.4-3.5); Glucose 109 mg/dL (80-115); Magnesium 1.7 mg/dL (1.6-2.6); Potassium 3.8 mmol/L (3.5-5.1); Sodium 142 mmol/L (136-145)
== END 2020-04-01 07:05 | disposition home or self-care (01) ==
LOC: MADLAB 07:04
PROVIDERS: ATTEND Internal Medicine Cardiovascular Disease
DX: I42.0 Dilated cardiomyopathy (principal); I50.22 Chronic systolic (congestive) heart failure; I48.20 Chronic atrial fibrillation, unspecified
CPT/HCPCS: 36415; 80053; 83735; 83880; 85025; 86140

== ENCOUNTER 2020-04-07 07:55 | Outpatient (CLI) | payer MEDICARE ==
[2020-04-07 08:14] LABS: Hemoglobin 10.4 g/dL (14.0-18.0); Mean Corpuscular HGB CONC 29.2 g/dL (32.0-36.0); Mean Corpuscular Hemoglobin 26.8 pg (27.0-31.0); Mean Corpuscular Volume 91.6 fL (78.0-98.0); Mean Platelet Volume 7.2 fL (7.4-10.4); Platelet Count 293 thou/uL (130-400); Red Blood Cell (RBC) Count 3.87 mill/uL (4.70-6.10); White Blood Cell (WBC) Count 5.3 thou/uL (4.8-10.8)
[2020-04-07 09:33] LABS: ALT (SGPT) 9 U/L (8-55); AST (SGOT) 19 U/L (5-34); Albumin 3.7 g/dL (3.4-4.8); Alkaline Phosphatase 115 U/L (40-110); Anion Gap 15 mmol/L (10-20); BUN (Urea Nitrogen) 21 mg/dL (8.4-25.7); Bilirubin, Total 0.5 mg/dL (0.2-1.2); CRP (Inflammatory) 0.57 mg/dL (= or < 0.5); Calc. Creatinine Clearance 0 mL/min (70-130); Calcium 8.6 mg/dL (7.8-10.44); Carbon Dioxide 19 mmol/L (23-31); Chloride 111 mmol/L (98-107); Estimated GFR-MDRD 66; Globulin 3.3 g/dL (2.4-3.5); Glucose 99 mg/dL (80-115); Potassium 4.3 mmol/L (3.5-5.1); Sodium 141 mmol/L (136-145)
== END 2020-04-07 07:56 | disposition home or self-care (01) ==
LOC: MADLAB 07:55
PROVIDERS: ATTEND Internal Medicine Infectious Disease
DX: I50.22 Chronic systolic (congestive) heart failure (principal); I48.20 Chronic atrial fibrillation, unspecified; I42.0 Dilated cardiomyopathy
CPT/HCPCS: 36415; 80053; 85027; 86140

== ENCOUNTER 2020-05-01 05:32 | Emergency (ER) | payer MEDICARE ==
[2020-05-01 06:26] LABS: #Basophils 0.1 thou/uL (0.0-0.2); #Eosinphils 0.1 thou/uL (0.0-0.7); #Lymphocytes 1.8 thou/uL (1.20-3.40); #Monocytes 0.5 thou/uL (0.11-0.59); #Neutrophils 3.2 thou/uL (1.40-6.50); %Eosinophils 1.2 % (0.0-10.0); %Lymphocytes 31.9 % (21.0-51.0); %Monocytes 8.8 % (0.0-10.0); %Neutrophils 57.1 % (42.0-75.0); Hemoglobin 10.7 g/dL (14.0-18.0); Mean Corpuscular HGB CONC 29.6 g/dL (32.0-36.0); Mean Corpuscular Hemoglobin 26.1 pg (27.0-31.0); Mean Corpuscular Volume 88.1 fL (78.0-98.0); Mean Platelet Volume 7.5 fL (7.4-10.4); Platelet Count 295 thou/uL (130-400); RBC Distribution Width 15.1 % (11.5-14.5); White Blood Cell (WBC) Count 5.6 thou/uL (4.8-10.8)
[2020-05-01 06:43] LABS: ALT (SGPT) 10 U/L (8-55); AST (SGOT) 19 U/L (5-34); Albumin 3.7 g/dL (3.4-4.8); Alkaline Phosphatase 120 U/L (40-110); Anion Gap 16 mmol/L (10-20); BUN (Urea Nitrogen) 26 mg/dL (8.4-25.7); Bilirubin, Total 0.5 mg/dL (0.2-1.2); CK (CPK) 139 U/L (30-200); Calc. Creatinine Clearance 0 mL/min (70-130); Calcium 8.8 mg/dL (7.8-10.44); Carbon Dioxide 20 mmol/L (23-31); Chloride 108 mmol/L (98-107); Estimated GFR-MDRD 52; Globulin 3.4 g/dL (2.4-3.5); Glucose 105 mg/dL (80-115); Potassium 4.3 mmol/L (3.5-5.1); Protein, Total 7.1 g/dL (5.8-8.1); Sodium 140 mmol/L (136-145)
[2020-05-01 07:06] LABS: CKMB 3.7 ng/mL (0-6.6)
[2020-05-01] MEDS ORDERED: Furosemide 40 MG/4 ML VIAL ONE (07:17)
--- NOTE | 2020-05-01 08:19 | RAD ---
RADIOGRAPH CHEST 1 VIEW: DATE: 05/01/2020 HISTORY: 64-year-old male with cough FINDINGS: There is cardiomegaly. There is no evidence of consolidation, pulmonary edema, or pneumothorax. The l ateral costophrenic angles are not effaced. IMPRESSION: 1) No acute pulmonary findings. 2) cardiomegaly without pulmonary edema.
== END 2020-05-01 08:15 | disposition short-term general hospital (02) ==
LOC: MADERS 05:32
DX: I11.0 Hypertensive heart disease with heart failure (principal); I50.9 Heart failure, unspecified; I25.2 Old myocardial infarction; I48.91 Unspecified atrial fibrillation; E78.5 Hyperlipidemia, unspecified; Z79.899 Other long term (current) drug therapy
CPT/HCPCS: 71045; 80053; 82550; 82553; 83880; 84484; 85025; 85379; 93005; 94760; 96374; 96375; J1940

== ENCOUNTER 2020-05-08 00:04 | Emergency (ER) | payer MEDICARE ==
[2020-05-08] MEDS ORDERED: Furosemide 40 MG/4 ML VIAL ONE (00:46)
[2020-05-08 01:16] LABS: ALT (SGPT) 13 U/L (8-55); Alkaline Phosphatase 107 U/L (40-110); Anion Gap 19 mmol/L (10-20); BUN (Urea Nitrogen) 32 mg/dL (8.4-25.7); Bilirubin, Total 0.8 mg/dL (0.2-1.2); Calc. Creatinine Clearance 0 mL/min (70-130); Calcium 9.2 mg/dL (7.8-10.44); Carbon Dioxide 20 mmol/L (23-31); Chloride 105 mmol/L (98-107); Globulin 3.9 g/dL (2.4-3.5); Glucose 95 mg/dL (80-115); Lipase 33 U/L (8-78); Potassium 5.1 mmol/L (3.5-5.1); Protein, Total 7.9 g/dL (5.8-8.1); Sodium 139 mmol/L (136-145)
[2020-05-08 01:19] LABS: #Basophils 0.1 thou/uL (0.0-0.2); #Eosinphils 0.1 thou/uL (0.0-0.7); #Lymphocytes 2.5 thou/uL (1.20-3.40); #Monocytes 0.6 thou/uL (0.11-0.59); #Neutrophils 3.2 thou/uL (1.40-6.50); %Basophils 1.6 % (0.0-1.0); %Eosinophils 1.6 % (0.0-10.0); %Lymphocytes 38.5 % (21.0-51.0); %Monocytes 8.9 % (0.0-10.0); %Neutrophils 49.3 % (42.0-75.0); Anisocytosis MODERATE=16-30 cells (100X) (0-5/hpf); Elliptocytes SLIGHT = 2-5 cells (100X) (0-1/hpf); Hemoglobin 10.9 g/dL (14.0-18.0); MDiff Complete? YES; Mean Corpuscular Hemoglobin 25.5 pg (27.0-31.0); Mean Corpuscular Volume 87.9 fL (78.0-98.0); Mean Platelet Volume 7.2 fL (7.4-10.4); Ovalocytes SLIGHT = 2-5 cells (100X) (0-1/hpf); Platelet Count 343 thou/uL (130-400); RBC Distribution Width 15.5 % (11.5-14.5); Red Blood Cell (RBC) Count 4.27 mill/uL (4.70-6.10); Target Cells SLIGHT = 2-5 cells (100X) (0-1/hpf); White Blood Cell (WBC) Count 6.6 thou/uL (4.8-10.8)
[2020-05-08 01:34] LABS: AST (SGOT) 24 U/L (5-34)
[2020-05-08 01:36] LABS: CKMB 4.1 ng/mL (0-6.6)
[2020-05-08] MEDS ORDERED: Metoprolol Tartrate 5 MG/5 ML VIAL ONE (01:37)
--- NOTE | 2020-05-08 08:26 | RAD ---
SINGLE VIEW CHEST: HISTORY: Dyspnea. COMPARISON: 05/01/20 FINDINGS: A single view of the chest shows an enlarged but stable cardiomediastinal silhouette. There is no issac dence of consolidation, mass or pleural effusion. IMPRESSION: Stable cardiomegaly. POS: [facility]
== END 2020-05-08 02:30 | disposition home or self-care (01) ==
LOC: MADERS 00:04
DX: I11.0 Hypertensive heart disease with heart failure (principal); I50.9 Heart failure, unspecified; I25.2 Old myocardial infarction; I48.91 Unspecified atrial fibrillation; E78.5 Hyperlipidemia, unspecified; E11.9 Type 2 diabetes mellitus without complications; N28.9 Disorder of kidney and ureter, unspecified; Z87.891 Personal history of nicotine dependence; Z79.899 Other long term (current) drug therapy
CPT/HCPCS: 71045; 80053; 82553; 83690; 83880; 84443; 84484; 85025; 93005; 96374; 96375; J1940

== ENCOUNTER 2020-05-23 23:36 | Emergency (ER) | payer MEDICARE ==
[2020-05-24] MEDS ORDERED: Furosemide 40 MG/4 ML VIAL ONE (00:26)
[2020-05-24] MEDS ORDERED: Furosemide 20 MG/2 ML VIAL ONE (00:26)
[2020-05-24 00:43] LABS: ALT (SGPT) 10 U/L (8-55); AST (SGOT) 22 U/L (5-34); Albumin 3.7 g/dL (3.4-4.8); Alkaline Phosphatase 98 U/L (40-110); Anion Gap 19 mmol/L (10-20); BUN (Urea Nitrogen) 38 mg/dL (8.4-25.7); Calc. Creatinine Clearance 0 mL/min (70-130); Calcium 8.6 mg/dL (7.8-10.44); Carbon Dioxide 13 mmol/L (23-31); Chloride 110 mmol/L (98-107); Digoxin Less than 0.15 ng/mL (0.8-2.0); Estimated GFR-MDRD 37; Globulin 3.5 g/dL (2.4-3.5); Glucose 86 mg/dL (80-115); Protein, Total 7.2 g/dL (5.8-8.1); Sodium 138 mmol/L (136-145)
[2020-05-24 00:49] LABS: #Basophils 0.1 thou/uL (0.0-0.2); #Eosinphils 0.1 thou/uL (0.0-0.7); #Lymphocytes 2.1 thou/uL (1.20-3.40); #Monocytes 0.5 thou/uL (0.11-0.59); #Neutrophils 2.6 thou/uL (1.40-6.50); %Basophils 1.5 % (0.0-1.0); %Eosinophils 1.1 % (0.0-10.0); %Lymphocytes 38.8 % (21.0-51.0); %Monocytes 9.9 % (0.0-10.0); %Neutrophils 48.6 % (42.0-75.0); Hemoglobin 10.7 g/dL (14.0-18.0); Mean Corpuscular HGB CONC 29.2 g/dL (32.0-36.0); Mean Corpuscular Hemoglobin 25.1 pg (27.0-31.0); Mean Corpuscular Volume 86.2 fL (78.0-98.0); Mean Platelet Volume 6.9 fL (7.4-10.4); Platelet Count 291 thou/uL (130-400); Red Blood Cell (RBC) Count 4.25 mill/uL (4.70-6.10); White Blood Cell (WBC) Count 5.3 thou/uL (4.8-10.8)
[2020-05-24] MEDS ORDERED: Metoprolol Tartrate 50 MG TAB ONE (01:02)
[2020-05-24] MEDS ORDERED: Metoprolol Tartrate 5 MG/5 ML VIAL ONE (01:02)
[2020-05-24 01:34] LABS: CKMB 6.3 ng/mL (0-6.6)
[2020-05-24] MEDS ORDERED: Sodium Chloride 0.9% 250 ML 250 ML ONE (01:53)
--- NOTE | 2020-05-24 07:43 | RAD ---
EXAM: Single view of the chest HISTORY: Shortness of breath COMPARISON: 05/08/2020 FINDINGS: Single view of the chest shows an enlarged but stable cardiomediastinal silhouette. Athero sclerotic calcifications are seen in the aorta. There is no evidence of consolidation, mass, or pleural effusion. The bones are unremarkable IMPRESSION: Cardiomegaly
== END 2020-05-24 02:32 | disposition short-term general hospital (02) ==
LOC: MADERS 23:36
DX: I13.0 Hypertensive heart and chronic kidney disease with heart failure and stage 1 through stage 4 chronic kidney disease, or unspecified chronic kidney disease (principal); I50.9 Heart failure, unspecified; E11.22 Type 2 diabetes mellitus with diabetic chronic kidney disease; N18.9 Chronic kidney disease, unspecified; I25.2 Old myocardial infarction; E78.5 Hyperlipidemia, unspecified; Z87.891 Personal history of nicotine dependence; Z79.899 Other long term (current) drug therapy
CPT/HCPCS: 36415; 71045; 80053; 80162; 82553; 83880; 84484; 85025; 93005; 96361; 96374; 96375; J1940; J7050

== ENCOUNTER 2020-06-08 23:15 | Emergency (ER) | payer MEDICARE ==
[2020-06-09 00:37] LABS: #Eosinphils 0.1 thou/uL (0.0-0.7); #Lymphocytes 2.1 thou/uL (1.20-3.40); #Monocytes 0.7 thou/uL (0.11-0.59); #Neutrophils 2.7 thou/uL (1.40-6.50); %Basophils 0.9 % (0.0-1.0); %Eosinophils 1.8 % (0.0-10.0); %Lymphocytes 36.9 % (21.0-51.0); %Monocytes 12.4 % (0.0-10.0); %Neutrophils 48.2 % (42.0-75.0); Hemoglobin 9.9 g/dL (14.0-18.0); Mean Corpuscular HGB CONC 27.7 g/dL (32.0-36.0); Mean Corpuscular Hemoglobin 24.9 pg (27.0-31.0); Mean Corpuscular Volume 89.6 fL (78.0-98.0); Mean Platelet Volume 7.5 fL (7.4-10.4); Platelet Count 277 thou/uL (130-400); RBC Distribution Width 18.5 % (11.5-14.5); Red Blood Cell (RBC) Count 3.99 mill/uL (4.70-6.10); White Blood Cell (WBC) Count 5.6 thou/uL (4.8-10.8)
[2020-06-09 00:53] LABS: ALT (SGPT) 13 U/L (8-55); AST (SGOT) 20 U/L (5-34); Albumin 3.4 g/dL (3.4-4.8); Alkaline Phosphatase 91 U/L (40-110); Anion Gap 17 mmol/L (10-20); BUN (Urea Nitrogen) 32 mg/dL (8.4-25.7); Bilirubin, Total 1.1 mg/dL (0.2-1.2); CK (CPK) 396 U/L (30-200); Calc. Creatinine Clearance 0 mL/min (70-130); Calcium 8.4 mg/dL (7.8-10.44); Carbon Dioxide 22 mmol/L (23-31); Chloride 105 mmol/L (98-107); Estimated GFR-MDRD 39; Globulin 3.2 g/dL (2.4-3.5); Glucose 96 mg/dL (80-115); Lipase 40 U/L (8-78); Protein, Total 6.6 g/dL (5.8-8.1); Sodium 140 mmol/L (136-145)
[2020-06-09 01:21] LABS: Hypochromia SLIGHT = 6-15 cells (100X) (0-5/hpf); MDiff Complete? YES; Target Cells SLIGHT = 2-5 cells (100X) (0-1/hpf)
--- NOTE | 2020-06-09 07:54 | RAD ---
RADIOGRAPH CHEST 1 VIEW: DATE: 06/09/2020 HISTORY: 65-year-old male with dyspnea FINDINGS: There is severe cardiomegaly. There is no evidence of airspace density, pulmonary edema, or pneumotho rax. The lateral costophrenic angles are not effaced. No interval change since 05/24/2020. IMPRESSION: 1) No acute pulmonary findings. 2) severe cardiomegaly without pulmonary edema.
== END 2020-06-09 01:40 | disposition left against medical advice (07) ==
LOC: MADERS 23:15
DX: E11.9 Type 2 diabetes mellitus without complications (principal); I50.9 Heart failure, unspecified; E78.5 Hyperlipidemia, unspecified; I48.91 Unspecified atrial fibrillation; I25.2 Old myocardial infarction; I11.0 Hypertensive heart disease with heart failure; E78.00 Pure hypercholesterolemia, unspecified; M10.9 Gout, unspecified; M06.9 Rheumatoid arthritis, unspecified; Z87.891 Personal history of nicotine dependence
CPT/HCPCS: 71045; 80053; 82550; 83690; 83880; 84484; 85025; 93005; 94760